=== PATIENT | female | born 1985 | race Caucasian/White ===

== ENCOUNTER 2020-02-01 09:24 | Emergency (ER) | payer OTHER ==
[2020-02-01 09:31] VITALS: RESP 18
[2020-02-01] MEDS ORDERED: SODIUM CHLORIDE 0.9% 1,000 ML IV STA (09:41)
[2020-02-01] MEDS ORDERED: LIDOCAINE VISCOUS 2% 15 ML CUP MUCOUS MEM ONE (09:43)
[2020-02-01] MEDS ORDERED: ONDANSETRON 4 MG/2 ML VIAL IVP STA (09:44)
[2020-02-01] MEDS ORDERED: KETOROLAC 30 MG/ML 1 ML VIAL IVP STA (09:44)
[2020-02-01] MEDS ORDERED: ORPHENADRINE 30 MG/ML 2 ML VIAL IVP STA (09:44)
--- NOTE | 2020-02-01 09:48 | ED ---
General Adult HPI - General Chief complaint: Syncope Stated complaint: Syncope Time Seen by Provider: 02/01/20 09:33 Source: patient, RN notes reviewed, old records reviewed Mode of arrival: ambulatory Limitations: no limitations - History of Present Illness Initial comments: This Patient is a 34-year-old female who presents emergency department today for evaluation after syncopal episode. Patient reports that she's been having 3 weeks of diffuse body pain, complaining of muscle aches hip pain and joint pain. She reports that she's been having some episodes of vomiting as well. She states today she was standing at her. She gets something to drink when she passed out. She reports that she felt to the ground and this hit her upper lip causing a laceration in the inner upper lip. - Related Data Home Medications Medication Instructions Recorded Confirmed ALPRAZolam [Xanax] 0.25 mg PO HS 02/01/20 02/01/20 Ascorbic Acid [Vitamin C] 1,000 mg PO DAILY 02/01/20 02/01/20 Previous Rx's Medication Instructions Recorded Amoxicillin/Potassium Clav 1 tab PO Q12HR 10 Days #5 tab 02/01/20 [Augmentin 875-125 Tablet] Allergies Allergy/AdvReac Type Severity Reaction Status Date / Time No Known Allergies Allergy Verified 02/01/20 11:18 Review of Systems ROS Statement: Those systems with pertinent positive or pertinent negative responses have been documented in the HPI. ROS Other: All systems not noted in ROS Statement are negative. Past Medical History Past Medical History: No Reported History History of Any Multi-Drug Resistant Organisms: None Reported Past Surgical History: Breast Surgery, Section Past Psychological History: No Psychological Hx Reported Smoking Status: Former smoker Past Alcohol Use History: Occasional Past Drug Use History: Marijuana General Exam Limitations: no limitations General appearance: alert, in no apparent distress Head exam: Present: atraumatic, normocephalic, normal inspection Eye exam: Present: normal appearance, PERRL, EOMI. Absent: scleral icterus, conjunctival injection, periorbital swelling ENT exam: Present: normal exam, mucous membranes moist, other (Patient has a laceration of the inner upper lip. No laceration of the vermilion border.) Neck exam: Present: normal inspection. Absent: tenderness, meningismus, lymphadenopathy Respiratory exam: Present: normal lung sounds bilaterally. Absent: respiratory distress, wheezes, rales, rhonchi, stridor Cardiovascular Exam: Present: regular rate, normal rhythm, normal heart sounds. Absent: systolic murmur, diastolic murmur, rubs, gallop, clicks GI/Abdominal exam: Present: soft, normal bowel sounds. Absent: distended, t enderness, guarding, rebound, rigid Back exam: Present: normal inspection Course Vital Signs 02/01/20 02/01/20 09:28 12:38 Temperature 97.8 F 97.9 F Pulse Rate 126 H 101 H Respiratory 18 18 Rate Blood Pressure 136/84 118/80 O2 Sat by Pulse 98 100 Oximetry Procedures - Laceration Laceration #1 Indication: laceration Site: other (swelling) Size (cm): 2 Description: linear Depth: simple, single layer Anesthetic Used: lidocaine 1% Anesthesia Technique: local infiltration Amount (mls): 2 Pre-repair: wound explored Type of Sutures: vicryl Size of Sutures: 5-0 Number of Sutures: 4 Technique: simple, interrupted Patient Tolerated Procedure: well, other Medical Decision Making - Medical Decision Making 34 year old female with CC of syncope with concern for nausea, vomiting, and diarrhea and general fatigue for many weeks. Patient has no fever or complaints of acute pain besides lip laceration. Patient CT brain is negative for acute process. Lip laceration was closed with absorbable suture, and will place on short course of antibiotic for infection prevention. LAbs were reviewed and unremarkable, requests eBV panel for chronic fatigue. PAtient syncope was likely related to dehydration adn vagal episode while standing by the fridge. Di scussed patient needs to follow up with PCP. Return parameters discussed. - Lab Data Result diagrams: 02/01/20 09:50 02/01/20 09:50 Lab Results 02/01/20 02/01/20 02/01/20 Range/Units 09:50 09:50 09:50 WBC 10.7 H (3.8-10.6) k/uL RBC 4.45 (3.80-5.40) m/uL Hgb 14.6 (11.4-16.0) gm/dL Hct 43.8 (34.0-46.0) % MCV 98.3 (80.0-100.0) fL MCH 32.9 (25.0-35.0) pg MCHC 33.4 (31.0-37.0) g/dL RDW 12.5 (11.5-15.5) % Plt Count 337 (150-450) k/uL Neutrophils % 84 % Lymphocytes % 10 % Monocytes % 5 % Eosinophils % 1 % Basophils % 0 % Neutrophils # 9.0 H (1.3-7.7) k/uL Lymphocytes # 1.0 (1.0-4.8) k/uL Monocytes # 0.5 (0-1.0) k/uL Eosinophils # 0.1 (0-0.7) k/uL Basophils # 0.0 (0-0.2) k/uL PT 10.1 (9.0-12.0) sec INR 1.0 (<1.2) APTT 24.4 (22.0-30.0) sec Sodium 142 (137-145) mmol/L Potassium 3.9 (3.5-5.1) mmol/L Chloride 105 (98-107) mmol/L Carbon Dioxide 25 (22-30) mmol/L Anion Gap 12 mmol/L BUN 22 H (7-17) mg/dL Creatinine 0.47 L (0.52-1.04) mg/dL Est GFR (CKD-EPI)AfAm >90 (>60 ml/min/1.73 sqM) Est GFR (CKD-EPI)NonAf >90 (>60 ml/min/1.73 sqM) Glucose 149 H (74-99) mg/dL Lactic Ac Sepsis Rflx Plasma Lactic Acid Asaf (0.7-2.0) mmol/L Calcium 8.9 (8.4-10.2) mg/dL Magnesium 2.0 (1.6-2.3) mg/dL Total Bilirubin 0.2 (0.2-1.3) mg/dL AST 31 (14-36) U/L ALT 27 (4-34) U/L Alkaline Phosphatase 70 (38-126) U/L Troponin I (0.000-0.034) ng/mL Total Protein 7.4 (6.3-8.2) g/dL Albumin 4.3 (3.5-5.0) g/dL HCG, Qual Not Detected Urine Color Urine Appearance (Clear) Urine pH (5.0-8.0) Ur Specific Foreman (1.001-1.035) Urine Protein (Negative) Urine Glucose (UA) (Negative) Urine Ketones (Negative) Urine Blood (Negative) Urine Nitrite (Negative) Urine Bilirubin (Negative) Urine Urobilinogen (<2.0) mg/dL Ur Leukocyte Esterase (Negative) 02/01/20 02/01/20 02/01/20 Range/Units 09:50 09:50 10:24 WBC (3.8-10.6) k/uL RBC (3.80-5.40) m/uL Hgb (11.4-16.0) gm/dL Hct (34.0-46.0) % MCV (80.0-100.0) fL MCH (25.0-35.0) pg MCHC (31.0-37.0) g/dL RDW (11.5-15.5) % Plt Count (150-450) k/uL Neutrophils % % Lymphocytes % % Monocytes % % Eosinophils % % Basophils % % Neutrophils # (1.3-7.7) k/uL Lymphocytes # (1.0-4.8) k/uL Monocytes # (0-1.0) k/uL Eosinophils # (0-0.7) k/uL Basophils # (0-0.2) k/uL PT (9.0-12.0) sec INR (<1.2) APTT (22.0-30.0) sec Sodium (137-145) mmol/L Potassium (3.5-5.1) mmol/L Chloride (98-107) mmol/L Carbon Dioxide (22-30) mmol/L Anion Gap mmol/L BUN (7-17) mg/dL Creatinine (0.52-1.04) mg/dL Est GFR (CKD-EPI)AfAm (>60 ml/min/1.73 sqM) Est GFR (CKD-EPI)NonAf (>60 ml/min/1.73 sqM) Glucose (74-99) mg/dL Lactic Ac Sepsis Rflx Y Plasma Lactic Acid Asaf 2.2 H* (0.7-2.0) mmol/L Calcium (8.4-10.2) mg/dL Magnesium (1.6-2.3) mg/dL Total Bilirubin (0.2-1.3) mg/dL AST (14-36) U/L ALT (4-34) U/L Alkaline Phosphatase (38-126) U/L Troponin I <0.012 (0.000-0.034) ng/mL Total Protein (6.3-8.2) g/dL Albumin (3.5-5.0) g/dL HCG, Qual Urine Color Urine Appearance (Clear) Urine pH (5.0-8.0) Ur Specific Foreman (1.001-1.035) Urine Protein (Negative) Urine Glucose (UA) (Negative) Urine Ketones (Negative) Urine Blood (Negative) Urine Nitrite (Negative) Urine Bilirubin (Negative) Urine Urobilinogen (<2.0) mg/dL Ur Leukocyte Esterase (Negative) 02/01/20 Range/Units 10:50 WBC (3.8-10.6) k/uL RBC (3.80-5.40) m/uL Hgb (11.4-16.0) gm/dL Hct (34.0-46.0) % MCV (80.0-100.0) fL MCH (25.0-35.0) pg MCHC (31.0-37.0) g/dL RDW (11.5-15.5) % Plt Count (150-450) k/uL Neutrophils % % Lymphocytes % % Monocytes % % Eosinophils % % Basophils % % Neutrophils # (1.3-7.7) k/uL Lymphocytes # (1.0-4.8) k/uL Monocytes # (0-1.0) k/uL Eosinophils # (0-0.7) k/uL Basophils # (0-0.2) k/uL PT (9.0-12.0) sec INR (<1.2) APTT (22.0-30.0) sec Sodium (137-145) mmol/L Potassium (3.5-5.1) mmol/L Chloride (98-107) mmol/L Carbon Dioxide (22-30) mmol/L Anion Gap mmol/L BUN (7-17) mg/dL Creatinine (0.52-1.04) mg/dL Est GFR (CKD-EPI)AfAm (>60 ml/min/1.73 sqM) Est GFR (CKD-EPI)NonAf (>60 ml/min/1.73 sqM) Glucose (74-99) mg/dL Lactic Ac Sepsis Rflx Plasma Lactic Acid Asaf (0.7-2.0) mmol/L Calcium (8.4-10.2) mg/dL Magnesium (1.6-2.3) mg/dL Total Bilirubin (0.2-1.3) mg/dL AST (14-36) U/L ALT (4-34) U/L Alkaline Phosphatase (38-126) U/L Troponin I (0.000-0.034) ng/mL Total Protein (6.3-8.2) g/dL Albumin (3.5-5.0) g/dL HCG, Qual Urine Color Light Yellow Urine Appearance Clear (Clear) Urine pH 6.5 (5.0-8.0) Ur Specific Foreman 1.016 (1.001-1.035) Urine Protein Negative (Negative) Urine Glucose (UA) 3+ H (Negative) Urine Ketones 2+ H (Negative) Urine Blood Negative (Negative) Urine Nitrite Negative (Negative) Urine Bilirubin Negative (Negative) Urine Urobilinogen <2.0 (<2.0) mg/dL Ur Leukocyte Esterase Negative (Negative) 02/01/20 09:49 EKG shows normal sinus rhythm rate atrial enlargement. Borderline EKG. Ventricular rate of 99 bpm. Intervals 132 ms. QRS duration is 80 ms. QT QTc is 368/472 ms. - Radiology Data Radiology results: report reviewed CXR is negative or acute process. CT brain and cspine shows no acute intracranial abnormality. Disposition Clinical Impression: Syncope, Glucose found in urine on examination, Dehydration, Lip laceration Disposition: HOME SELF-CARE Condition: Good Instructions (If sedation given, give patient instructions): Laceration (ED), Syncope (ED) Additional Instructions: Take antibiotic as prescribed. 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 The lip sutures will follow-up on her own. Patient should use salt water or Listerine rinses to help minimize infection risk. Return to the ED if any alarming signs or symptoms occur. Prescriptions: Amoxicillin/Potassium Clav [Augmentin 875-125 Tablet] 1 tab PO Q12HR 10 Days #5 tab Is patient prescribed a controlled substance at d/c from ED?: No Referrals: Janette Garcia MD [Primary Care Provider] - 1-2 days Aura Clay MD [STAFF PHYSICIAN] - 1-2 days Time of Disposition: 12:26
[2020-02-01 09:59] LABS: Basophils % (A) 0 %; Eosinophils # (A) 0.1 k/uL (0-0.7); Eosinophils % (A) 1 %; HCT 43.8 % (34.0-46.0); HGB 14.6 gm/dL (11.4-16.0); Lymphocytes % (A) 10 %; MCH 32.9 pg (25.0-35.0); MCHC 33.4 g/dL (31.0-37.0); MCV 98.3 fL (80.0-100.0); Mean Platelet Volume 7.7; Monocytes # (A) 0.5 k/uL (0-1.0); Monocytes % (A) 5 %; Neutrophils % (A) 84 %; Platelet Count 337 k/uL (150-450); RBC 4.45 m/uL (3.80-5.40); RDW 12.5 % (11.5-15.5); WBC 10.7 k/uL (3.8-10.6)
[2020-02-01 10:09] LABS: ALT 27 U/L (4-34); AST 31 U/L (14-36); African American GFR (CKD) >90 (>60 ml/min/1.73 sqM); Albumin 4.3 g/dL (3.5-5.0); Alkaline Phosphatase 70 U/L (38-126); Anion Gap 12 mmol/L; Blood Urea Nitrogen 22 mg/dL (7-17); Calcium 8.9 mg/dL (8.4-10.2); Carbon Dioxide 25 mmol/L (22-30); Chloride 105 mmol/L (98-107); Glucose 149 mg/dL (74-99); Non-African American GFR(CKD) >90 (>60 ml/min/1.73 sqM); Partial Thromboplastin Time 24.4 sec (22.0-30.0); Potassium 3.9 mmol/L (3.5-5.1); Prothrombin Time 10.1 sec (9.0-12.0); Sodium 142 mmol/L (137-145); Total Bilirubin 0.2 mg/dL (0.2-1.3); Total Protein 7.4 g/dL (6.3-8.2)
[2020-02-01 10:10] LABS: HCG,Qualitative Serum Not Detected
--- NOTE | 2020-02-01 10:47 | CT ---
EXAMINATION TYPE: CT brain cspine wo con DATE OF EXAM: 02/01/2020 COMPARISON: NONE HISTORY: Syncope CT DLP: 1152.9 mGycm Automated exposure control for dose reduction was used. TECHNIQUE: CT scan of the head and cervical spine are performed without contrast. FINDINGS: BRAIN: Central structures are midline. There is no evidence of hydrocephalus. No acute focal lesion, mass effect or midline shift is seen. I do not see evidence of intracranial blood. There is mucoperiosteal thickening involving the posterior ethmoid air cells bilaterally. There is al so some mucoperiosteal thickening involving the medial aspect of the right maxillary sinus. The remai tio paranasal sinuses and mastoids are clear. The bony calvarium is intact. IMPRESSION: 1. NO ACUTE INTRACRANIAL ABNORMALITY. 2. SINUS MUCOSAL DISEASE. CERVICAL SPINE: Visualized portions of the lungs are clear. Prevertebral soft tissues are normal. Vertebral body height and alignment are maintained. Atlantoaxial relationships are normal. There is n o significant degenerative change. No fractures are seen. IMPRESSION: NORMAL CT SCAN OF THE CERVICAL SPINE.
--- NOTE | 2020-02-01 10:48 | XR ---
EXAMINATION TYPE: XR chest 2V DATE OF EXAM: 02/01/2020 HISTORY: syncope. REFERENCE: NONE. FINDINGS: The lungs are clear. Pleural space are clear. Heart size upper limits of normal. IMPRESSION: NO ACUTE INTRATHORACIC ABNORMALITY.
[2020-02-01 11:22] LABS: Appearance,Urine Clear (Clear); Bilirubin,Urine Negative (Negative); Blood,Urine Negative (Negative); Color,Urine Light Yellow; Glucose,Urine (UA) 3+ (Negative); Leukocyte Esterase,Urine Negative (Negative); Nitrite,Urine Negative (Negative); PH, Urine 6.5 (5.0-8.0); Protein,Urine Negative (Negative); Specific Gravity,Urine 1.016 (1.001-1.035); Urobilinogen,Urine <2.0 mg/dL (<2.0)
[2020-02-01 11:55] LABS: Ketones,Urine 2+ (Negative)
[2020-02-01 12:38] VITALS: BP 118/80; PULSE 101; TEMP 97.9
[2020-02-03 13:34] LABS: EBV-EA (IgG) <0.2 AI; EBV-EBNA(IgG) >8.0 AI; EBV-VCA (IgG) >8.0 AI; EBV-VCA (IgM) <0.2 AI
== END 2020-02-01 12:38 | disposition home or self-care (01) ==
LOC: EC 09:24
DX: S01.511A Laceration without foreign body of lip, initial encounter (principal); R55 Syncope and collapse; R81 Glycosuria; E86.0 Dehydration; Z79.899 Other long term (current) drug therapy; Z87.891 Personal history of nicotine dependence; W18.09XA Striking against other object with subsequent fall, initial encounter
CPT/HCPCS: 36415; 93005; 86665 ×2; 80053; 86663; 83605; 83735; 84484; 85025; 85610; 85730; 81003; 84703; 86664; 71046; 72125; 70450; 99285; 12011; 96374; 96375 ×2; 96361; J2360; J2405; J1885

== ENCOUNTER → 2020-05-07 | Outpatient (CLI) | payer OTHER ==
[2020-05-07 19:38] LABS: Anti-DNA, DS unit <1.0 IU/mL; Anti-Smith Ab Interp NEGATIVE (NEGATIVE); Centromere Antibody <0.2 AI; Centromere Antibody Interp NEGATIVE (NEGATIVE); Cyclic Citrull Pep IgG Unit 0.8 U/mL; Cyclic Citrullinated Pep IgG NEGATIVE (NEGATIVE); DNA Double-Stranded NEGATIVE (NEGATIVE); JO-1 IgG Antibody <0.2 AI; Scleroderma SC-70 Ab <0.2 AI
[2020-05-08 12:47] LABS: Histone Antibody 1.7 UNITS (<1.0)
== END | disposition home or self-care (01) ==
LOC: LABWHC1 12:03
PROVIDERS: ATTEND Nurse Practitioner Family
DX: M25.50 Pain in unspecified joint (principal)
CPT/HCPCS: 36415; 83516; 86038; 86200; 86225; 86235

== ENCOUNTER → 2020-06-19 | Outpatient (CLI) | payer OTHER ==
[2020-06-20 02:20] LABS: Hemoglobin A1C 5.4 % (4.0-6.0)
== END | disposition home or self-care (01) ==
LOC: LABWHC1 14:54
PROVIDERS: ATTEND Nurse Practitioner Family
DX: F41.9 Anxiety disorder, unspecified (principal); R53.83 Other fatigue; R68.89 Other general symptoms and signs; R63.4 Abnormal weight loss
CPT/HCPCS: 36415; 82533; 83036; 84439; 84443; 84481

== ENCOUNTER 2020-07-16 02:47 | Emergency (ER) | payer OTHER ==
[2020-07-16 02:54] VITALS: BP 117/82; PULSE 89; RESP 18; TEMP 98.1
--- NOTE | 2020-07-16 03:00 | ED ---
Allergic Reaction HPI - General Chief complaint: Allergic Reaction Stated complaint: Hives Time Seen by Provider: 07/16/20 02:59 Source: patient, RN notes reviewed, old records reviewed Mode of arrival: ambulatory Limitations: no limitations - History of Present Illness Initial Comments: Is a 34-year-old female DF presented with ALLERGIC reaction today. Unknown cause. Hives diffuse all over body. Other complaints no fevers no new drugs. No other known exposures. Nursing travel history sick contacts. No significant pain. Patient is just having multiple areas of itching and hives MD Complaint: allergic reaction, hives (Diffuse) -: hour(s) Exposure: unknown Symptoms: rash, itching Severity: moderate Treatment Prior to Arrival: benadryl Previous Allergy History: none - Related Data Home Medications Medication Instructions Recorded Confirmed ALPRAZolam [Xanax] 0.25 mg PO HS 02/01/20 02/01/20 Ascorbic Acid [Vitamin C] 1,000 mg PO DAILY 02/01/20 02/01/20 Previous Rx's Medication Instructions Recorded Amoxicillin/Potassium Clav 1 tab PO Q12HR 10 Days #5 tab 02/01/20 [Augmentin 875-125 Tablet] Allergies Allergy/AdvReac Type Severity Reaction Status Date / Time No Known Allergies Allergy Verified 07/16/20 02:54 Review of Systems ROS Statement: Those systems with pertinent positive or pertinent negative responses have been documented in the HPI. ROS Other: All systems not noted in ROS Statement are negative. Past Medical History Past Medical History: No Reported History, Thyroid Disorder History of Any Multi-Drug Resistant Organisms: None Reported Past Surgical History: Breast Surgery, Section Past Psychological History: No Psychological Hx Reported Smoking Status: Never smoker Past Alcohol Use History: Occasional Past Drug Use History: Marijuana General Exam - General Exam Comments Initial Comments: Diffuse pruritic, raised hive rash, erythematous blanchable Limitations: no limitations General appearance: alert, in no apparent distress Head exam: Present: atraumatic, normocephalic, normal inspection Eye exam: Present: normal appearance, PERRL, EOMI. Absent: scleral icterus, conjunctival injection, periorbital swelling ENT exam: Present: normal exam, mucous membranes moist Neck exam: Present: normal inspection. Absent: tenderness, meningismus, lymphadenopathy Respiratory exam: Present: normal lung sounds bilaterally. Absent: respiratory distress, wheezes, rales, rhonchi, stridor Cardiovascular Exam: Present: regular rate, normal rhythm, normal heart sounds. Absent: systolic murmur, diastolic murmur, rubs, gallop, clicks GI/Abdominal exam: Present: soft, normal bowel sounds. Absent: distended, tenderness, guarding, rebound, rigid Extremities exam: Present: normal inspection, full ROM, normal capillary refill. Absent: tenderness, pedal edema, joint swelling, calf tenderness Back exam: Present: normal inspection Neurological exam: Present: alert, oriented X3, CN II-XII intact Psychiatric exam: Present: normal affect, normal mood Skin exam: Present: warm, dry, intact, normal color. Absent: rash Course Vital Signs 07/16/20 02:51 Temperature 98.1 F Pulse Rate 89 Respiratory 18 Rate Blood Pressure 117/82 O2 Sat by Pulse 100 Oximetry - Reevaluation(s) Reevaluation #1: 07/16/20 03:38 Medical records reviewed Reevaluation #2: 07/16/20 03:38 Symptoms are significantly improved Medical Decision Making - Medical Decision Making 34 female DF for ALLERGIC reaction and hives. Patient can be discharged home on antihistamine Disposition Clinical Impression: Allergic reaction Disposition: HOME SELF-CARE Condition: Good Instructions (If sedation given, give patient instructions): Urticaria (ED) Is patient prescribed a controlled substance at d/c from ED?: No Referrals: Janette Garcia MD [Primary Care Provider] - 1-2 days
[2020-07-16] MEDS ORDERED: DEXAMETHASONE SOD PHOSPHATE 10 MG/ML 1 ML VIAL IV STA (03:07)
[2020-07-16] MEDS ORDERED: SODIUM CHLORIDE 0.9% 1,000 ML IV STA (03:07)
[2020-07-16] MEDS ORDERED: FAMOTIDINE 20 MG/2 ML VIAL IV STA (03:07)
[2020-07-16] MEDS ORDERED: TRIAMCINOLONE 0.1% CREAM 80 GM TUBE TOPICAL ONE (03:15)
[2020-07-16] MEDS ORDERED: hydrOXYzine HCL 25 MG TAB PO ONE (03:15)
== END 2020-07-16 03:56 | disposition home or self-care (01) ==
LOC: EC 02:47
DX: L50.0 Allergic urticaria (principal); Z79.899 Other long term (current) drug therapy
CPT/HCPCS: 99283; 96374; 96375; 96361; J1100

== ENCOUNTER → 2020-09-30 | Outpatient (CLI) | payer OTHER ==
[2020-10-01 04:18] LABS: T4, Free (Free Thyroxine) 0.6 ng/dL (0.80-1.80)
== END | disposition home or self-care (01) ==
LOC: LABWHC1 13:26
PROVIDERS: ATTEND Internal Medicine Endocrinology, Diabetes & Metabolism
DX: E05.90 Thyrotoxicosis, unspecified without thyrotoxic crisis or storm (principal)
CPT/HCPCS: 36415; 84439; 84443; 84481

== ENCOUNTER → 2020-10-26 | Outpatient (CLI) | payer OTHER ==
[2020-10-26 21:46] LABS: Total Protein,CSF 56 mg/dL (12-60)
[2020-10-26 21:47] LABS: Appearance,CSF Clear; CSF Tube Number 4; Nucleated Cells, CSF 0 u/L (0-5); Red Blood Cell,CSF 1 u/L (0-10)
== END | disposition home or self-care (01) ==
LOC: LABWHC1 09:27
PROVIDERS: ATTEND Nurse Practitioner Family
DX: G35 Multiple sclerosis (principal)
CPT/HCPCS: 36415; 82040; 82042; 82784; 83873; 83916; 84157; 87801; 89050

== ENCOUNTER → 2020-11-13 | Outpatient (CLI) | payer OTHER ==
[2020-11-13 22:16] LABS: T4, Free (Free Thyroxine) 1.2 ng/dL (0.80-1.80)
[2020-11-14 00:55] LABS: Hemoglobin A1C 4.8 % (4.0-6.0)
== END | disposition home or self-care (01) ==
LOC: LABWHC1 11:37
PROVIDERS: ATTEND Internal Medicine Endocrinology, Diabetes & Metabolism
DX: E06.3 Autoimmune thyroiditis (principal); E05.00 Thyrotoxicosis with diffuse goiter without thyrotoxic crisis or storm; Z86.32 Personal history of gestational diabetes
CPT/HCPCS: 36415; 83036; 84439; 84443; 84481

== ENCOUNTER → 2020-12-15 | Outpatient (CLI) | payer OTHER ==
[2020-12-16 04:26] LABS: Hemoglobin A1C 5.1 % (4.0-6.0)
[2020-12-16 06:51] LABS: T4, Free (Free Thyroxine) 0.8 ng/dL (0.80-1.80)
[2020-12-16 13:00] LABS: Alt. alternata IgE Class CLASS 0; Alternaria alternata IgE <0.10 kU/L (<0.10); Asperg. fumagatus IgE <0.10 kU/L (<0.10); Asperg. fumagatus IgE Class CLASS 0; Candida albicans IgE Class CLASS 0; Clad herbarum IgE <0.10 kU/L (<0.10); Clad herbarum IgE Class CLASS 0; Mucor racemosus IgE <0.10 kU/L (<0.10); Mucor racemosus IgE Class CLASS 0; Penicillium chrysogenum IgE <0.10 kU/L (<0.10); Penicillium chrysogenum IgE Cl CLASS 0
== END | disposition home or self-care (01) ==
LOC: LABWHC1 14:08
PROVIDERS: ATTEND Internal Medicine Endocrinology, Diabetes & Metabolism
DX: E05.00 Thyrotoxicosis with diffuse goiter without thyrotoxic crisis or storm (principal); E06.3 Autoimmune thyroiditis; G90.09 Other idiopathic peripheral autonomic neuropathy; R53.1 Weakness
CPT/HCPCS: 36415; 81291; 82390; 82525; 83036; 84439; 84443; 84481; 86003

== ENCOUNTER → 2021-01-21 | Outpatient (CLI) | payer OTHER ==
[2021-01-21 23:28] LABS: C-Peptide 1.36 ng/mL (0.81-3.85)
== END | disposition home or self-care (01) ==
LOC: LABWHC1 14:40
PROVIDERS: ATTEND Internal Medicine Endocrinology, Diabetes & Metabolism
DX: E05.00 Thyrotoxicosis with diffuse goiter without thyrotoxic crisis or storm (principal); E16.2 Hypoglycemia, unspecified; G62.9 Polyneuropathy, unspecified; R53.1 Weakness
CPT/HCPCS: 36415; 82010; 82533; 82947; 83525; 84439; 84443; 84481; 84681; 86337; 86340

== ENCOUNTER → 2021-02-16 | Outpatient (CLI) | payer OTHER ==
[2021-02-16 21:04] LABS: T4, Free (Free Thyroxine) 1.5 ng/dL (0.80-1.80)
== END | disposition home or self-care (01) ==
LOC: LABWHC1 14:08
PROVIDERS: ATTEND Internal Medicine Endocrinology, Diabetes & Metabolism
DX: E05.00 Thyrotoxicosis with diffuse goiter without thyrotoxic crisis or storm (principal); G62.9 Polyneuropathy, unspecified; R53.1 Weakness
CPT/HCPCS: 36415; 83090; 84439; 84443; 84481

== ENCOUNTER → 2021-09-13 | Outpatient (CLI) | payer OTHER ==
--- NOTE | 2021-09-13 11:34 | US ---
EXAMINATION TYPE: US abdomen complete DATE OF EXAM: 09/13/2021 COMPARISON: NONE CLINICAL HISTORY: R10.84 Generalized abdominal pain. EXAM MEASUREMENTS: Liver Length: 15.2 cm Gallbladder Wall: 0.2 cm CBD: 0.2 cm Spleen: 8.2 cm Right Kidney: 11.7x4.5x3.0 cm Left Kidney: 12.2x4.4x5.2 cm Pancreas: wnl Liver: wnl Gallbladder: wnl Evidence for sonographic Sy's sign: No CBD: wnl Spleen: wnl Right Kidney: wnl Left Kidney: wnl Upper IVC: wnl Abd Aorta: wnl IMPRESSION: 1. No acute ultrasound abdomen abnormality is evident.
== END | disposition home or self-care (01) ==
LOC: RADUSWWP 10:03
PROVIDERS: ATTEND Family Medicine
DX: R10.84 Generalized abdominal pain (principal)
CPT/HCPCS: 76700

== ENCOUNTER 2022-03-13 14:19 | Emergency (ER) | payer OTHER ==
[2022-03-13 14:23] VITALS: RESP 16; TEMP 97.8
[2022-03-13] MEDS ORDERED: SODIUM CHLORIDE 0.9% 1,000 ML IV STA (14:42)
[2022-03-13] MEDS ORDERED: ONDANSETRON 4 MG/2 ML VIAL IVP STA (14:43)
[2022-03-13] MEDS ORDERED: FAMOTIDINE 20 MG/2 ML VIAL IV STA (14:43)
[2022-03-13] MEDS ORDERED: diphenhydrAMINE 50 MG/ML 1 ML VIAL IVP STA (14:43)
[2022-03-13] MEDS ORDERED: KETOROLAC 15 MG/ML 1 ML VIAL IVP STA (14:43)
[2022-03-13 14:59] LABS: Basophils # (A) 0.1 k/uL (0-0.2); Basophils % (A) 1 %; Eosinophils # (A) 0.1 k/uL (0-0.7); Eosinophils % (A) 2 %; HCT 42.7 % (34.0-46.0); HGB 14.3 gm/dL (11.4-16.0); Lymphocytes # (A) 1.4 k/uL (1.0-4.8); Lymphocytes % (A) 18 %; MCH 35.4 pg (25.0-35.0); MCHC 33.6 g/dL (31.0-37.0); MCV 105.4 fL (80.0-100.0); Macrocytosis Moderate; Mean Platelet Volume 7.7; Monocytes # (A) 0.5 k/uL (0-1.0); Monocytes % (A) 7 %; Neutrophils # (A) 5.4 k/uL (1.3-7.7); Neutrophils % (A) 70 %; Platelet Count 340 k/uL (150-450); RBC 4.05 m/uL (3.80-5.40); RDW 13.5 % (11.5-15.5); WBC 7.7 k/uL (3.8-10.6)
[2022-03-13 15:09] LABS: ALT 17 U/L (4-34); AST 39 U/L (14-36); African American GFR (CKD) >90 (>60 ml/min/1.73 sqM); Albumin 4.9 g/dL (3.5-5.0); Alkaline Phosphatase 67 U/L (38-126); Amylase 67 U/L (30-110); Anion Gap 8 mmol/L; Blood Urea Nitrogen 9 mg/dL (7-17); Calcium 8.9 mg/dL (8.4-10.2); Carbon Dioxide 25 mmol/L (22-30); Chloride 104 mmol/L (98-107); Glucose 93 mg/dL (74-99); Lipase 104 U/L (23-300); Non-African American GFR(CKD) >90 (>60 ml/min/1.73 sqM); Sodium 137 mmol/L (137-145); Total Bilirubin 0.9 mg/dL (0.2-1.3); Total Protein 8.4 g/dL (6.3-8.2)
[2022-03-13 15:11] LABS: Potassium 4.4 mmol/L (3.5-5.1)
--- NOTE | 2022-03-13 15:35 | ED ---
General Adult HPI - General Chief complaint: Chest Pain Stated complaint: SOB/Chest pain Time Seen by Provider: 03/13/22 14:40 Source: patient, RN notes reviewed, old records reviewed Mode of arrival: wheelchair Limitations: no limitations - History of Present Illness Initial comments: Patient is a 36-year-old female with past medical history remarkable for Steven's thyroiditis and hyperthyroidism presents emergency Department with chronic symptoms. She states she has been experiencing for multiple months to years intermittent chest pressure, shortness of breath, as well as lightheadedness. Patient has been having some mild worsening nausea as well as. At time of nonbilious, emesis. Patient is also currently on her menstrual period, and endorses chronic heavy entities. Denies being . Has no other acute point at this time. His mild epigastric tenderness to palpation. Denies any fevers per denies any palpitations. His no other acute complaints at this time. States typically she receives IV fluids and feels improved. She presents for evaluation at this time. - Related Data Home Medications Medication Instructions Recorded Confirmed ALPRAZolam [Xanax] 0.25 mg PO HS 02/01/20 11/11/21 methIMAzole [Tapazole] 10 mg PO DAILY 03/25/21 11/11/21 Ascorbic Acid [Vitamin C] 1,000 mg PO DAILY 11/11/21 11/11/21 Cholecalciferol [Vitamin D3 (125 125 mcg PO DAILY 11/11/21 11/11/21 Mcg = 5000 Iu)] Previous Rx's Medication Instructions Recorded Metoclopramide HCl [Reglan] 5 mg PO BID PRN 5 Days #10 tablet 03/13/22 Allergies Allergy/AdvReac Type Severity Reaction Status Date / Time silicone Allergy blisters, Verified 03/13/22 14:21 multiple symptoms Review of Systems ROS Statement: Those systems with pertinent positive or pertinent negative responses have been documented in the HPI. Review of Systems: CONST: Denies fever EYES: Denies blurry vision ENT: Denies nasal congestion C/V: Endorses chronic chest pressure RESP: Endorses intermittent shortness of breath GI: Endorses epigastric abdominal discomfort : Denies dysuria SKIN: Denies rash. MSK: Denies joint pain. NEURO: Denies headache ROS Other: All systems not noted in ROS Statement are negative. Past Medical History Past Medical History: Thyroid Disorder Additional Past Medical History / Comment(s): Graves disease, hashimotos; occ rapid HR/palpitations. c/o wgt loss, abd pain, bloating, diarrhea. c/o joint pain, stiffness. Poss megaloblastic anemia. History of Any Multi-Drug Resistant Organisms: None Reported Past Surgical History: Breast Surgery, Section Additional Past Surgical History / Comment(s): C-S x3. Breast implants x2, then removed last silicone implants. Past Anesthesia/Blood Transfusion Reactions: Motion Sickness, Postoperative Nausea & Vomiting (PONV) Past Psychological History: Anxiety, Depression Smoking Status: Never smoker Past Alcohol Use History: Occasional Past Drug Use History: None Reported - Past Family History Mother Family Medical History: No Reported History General Exam - General Exam Comments Initial Comments: General: Appears in no acute distress. Afebrile. HEAD: Normal with no signs of head trauma. EYES: PERRLA, EOMI, conjunctiva normal, no discharge. No exophthalmos. ENT: Hearing grossly intact, normal oropharynx. RESPIRATORY: Clear breath sounds bilaterally. No wheezes, rales, or rhonchi. C/V: Regular rate and rhythm. S1 and S2 auscultated, no edema, peripheral pulses 2+ and intact throughout. No tachycardia. ABD: Abdomen soft, nondistended. Mild tightness to palpation in the epigastric region. No rebound tenderness. No peritoneal signs. No guarding. EXT: Normal range of motion, no obvious deformity SKIN: No rashes or lesions observed on exposed skin. NEURO: Alert and oriented 4. Limitations: no limitations Course Vital Signs 03/13/22 03/13/22 14:21 16:20 Temperature 97.8 F Pulse Rate 92 85 Respiratory 16 16 Rate Blood Pressure 132/89 117/81 O2 Sat by Pulse 100 100 Oximetry Medical Decision Making - Medical Decision Making Based on the patient's presentation and physical exam, I do believe she is like ly experiencing her chronic symptoms but cannot rule out acute cause at this time. Therefore we'll obtain cardio pulmonary labs at this time as well as basic abdominal labs. She'll be symptomatically treated with this time as well. I did offer her Covid and flu swabs which she declines. We'll obtain EKG and chest x-ray as well. She will receive IV fluids as well as GI cocktail and Toradol. Patient was in agreement this plan.I have no concern for thyroid storm at this time as she is afebrile, with normal sinus rhythm. Recent labs drawn within the last few months during which she was having the symptoms which showed normal thyroid function. She can follow up outpatient for further monitoring.. EKG shows no signs of acute ischemia. Normal sinus rhythm. Chest x-ray shows no acute cardiopulmonary process. Laboratory studies are remarkable for a d-dimer within normal limits per troponin is negative. Remainder the labs are unremarkable except for 2+ ketones in the urine. There is blood in the urine, however this is likely secondary to her being on her menstrual cycle at this time. Patient is not . Remainder the labs are unremarkable. On reevaluation, patient is feeling improved. Is tolerating oral intake. Vital signs are within normal limits. I discussed results laboratory studies and imaging with her. She expressed understanding. She would like to go home. I believe this is reasonable at this time. I recommended close follow up with her physician. I will provide the patient with a prescription for Reglan. I instructed the patient to follow up with their PCP in the next 3 days. I explained that the patient should return to the emergency department if they experience any worsening symptoms. Strict return precautions were discussed with the patient. The patient expressed understanding of these instructions. I answered all q uestions that the patient had. The patient was discharged home in good condition with their prescriptions and follow up information. - Lab Data Result diagrams: 03/13/22 14:56 03/13/22 14:56 Lab Results 03/13/22 03/13/22 03/13/22 Range/Units 14:56 14:56 14:56 WBC 7.7 (3.8-10.6) k/uL RBC 4.05 (3.80-5.40) m/uL Hgb 14.3 (11.4-16.0) gm/dL Hct 42.7 (34.0-46.0) % MCV 105.4 H (80.0-100.0) fL MCH 35.4 H (25.0-35.0) pg MCHC 33.6 (31.0-37.0) g/dL RDW 13.5 (11.5-15.5) % Plt Count 340 (150-450) k/uL MPV 7.7 Neutrophils % 70 % Lymphocytes % 18 % Monocytes % 7 % Eosinophils % 2 % Basophils % 1 % Neutrophils # 5.4 (1.3-7.7) k/uL Lymphocytes # 1.4 (1.0-4.8) k/uL Monocytes # 0.5 (0-1.0) k/uL Eosinophils # 0.1 (0-0.7) k/uL Basophils # 0.1 (0-0.2) k/uL Macrocytosis Moderate PT 11.0 (9.0-12.0) sec INR 1.0 (<1.2) APTT 29.0 (22.0-30.0) sec D-Dimer 0.20 (<0.60) mg/L FEU Sodium 137 (137-145) mmol/L Potassium 4.4 (3.5-5.1) mmol/L Chloride 104 (98-107) mmol/L Carbon Dioxide 25 (22-30) mmol/L Anion Gap 8 mmol/L BUN 9 (7-17) mg/dL Creatinine 0.64 (0.52-1.04) mg/dL Est GFR (CKD-EPI)AfAm >90 (>60 ml/min/1.73 sqM) Est GFR (CKD-EPI)NonAf >90 (>60 ml/min/1.73 sqM) Glucose 93 (74-99) mg/dL Calcium 8.9 (8.4-10.2) mg/dL Magnesium 2.0 (1.6-2.3) mg/dL Total Bilirubin 0.9 (0.2-1.3) mg/dL AST 39 H (14-36) U/L ALT 17 (4-34) U/L Alkaline Phosphatase 67 (38-126) U/L Troponin I (0.000-0.034) ng/mL Total Protein 8.4 H (6.3-8.2) g/dL Albumin 4.9 (3.5-5.0) g/dL Amylase 67 (30-110) U/L Lipase 104 (23-300) U/L Urine Color Urine Appearance (Clear) Urine pH (5.0-8.0) Ur Specific [place] (1.001-1.035) Urine Protein (Negative) Urine Glucose (UA) (Negative) Urine Ketones (Negative) Urine Blood (Negative) Urine Nitrite (Negative) Urine Bilirubin (Negative) Urine Urobilinogen (<2.0) mg/dL Ur Leukocyte Esterase (Negative) Urine RBC (0-5) /hpf Urine WBC (0-5) /hpf Ur Squamous Epith Cells (0-4) /hpf Urine Bacteria (None) /hpf Urine Mucus (None) /hpf Urine HCG, Qual (Not Detectd) 03/13/22 03/13/22 03/13/22 Range/Units 14:56 15:00 15:00 WBC (3.8-10.6) k/uL RBC (3.80-5.40) m/uL Hgb (11.4-16.0) gm/dL Hct (34.0-46.0) % MCV (80.0-100.0) fL MCH (25.0-35.0) pg MCHC (31.0-37.0) g/dL RDW (11.5-15.5) % Plt Count (150-450) k/uL MPV Neutrophils % % Lymphocytes % % Monocytes % % Eosinophils % % Basophils % % Neutrophils # (1.3-7.7) k/uL Lymphocytes # (1.0-4.8) k/uL Monocytes # (0-1.0) k/uL Eosinophils # (0-0.7) k/uL Basophils # (0-0.2) k/uL Macrocytosis PT (9.0-12.0) sec INR (<1.2) APTT (22.0-30.0) sec D-Dimer (<0.60) mg/L FEU Sodium (137-145) mmol/L Potassium (3.5-5.1) mmol/L Chloride (98-107) mmol/L Carbon Dioxide (22-30) mmol/L Anion Gap mmol/L BUN (7-17) mg/dL Creatinine (0.52-1.04) mg/dL Est GFR (CKD-EPI)AfAm (>60 ml/min/1.73 sqM) Est GFR (CKD-EPI)NonAf (>60 ml/min/1.73 sqM) Glucose (74-99) mg/dL Calcium (8.4-10.2) mg/dL Magnesium (1.6-2.3) mg/dL Total Bilirubin (0.2-1.3) mg/dL AST (14-36) U/L ALT (4-34) U/L Alkaline Phosphatase (38-126) U/L Troponin I <0.012 (0.000-0.034) ng/mL Total Protein (6.3-8.2) g/dL Albumin (3.5-5.0) g/dL Amylase (30-110) U/L Lipase (23-300) U/L Urine Color Colorless Urine Appearance Clear (Clear) Urine pH 7.0 (5.0-8.0) Ur Specific [place] 1.004 (1.001-1.035) Urine Protein Negative (Negative) Urine Glucose (UA) Negative (Negative) Urine Ketones 2+ H (Negative) Urine Blood Large H (Negative) Urine Nitrite Negative (Negative) Urine Bilirubin Negative (Negative) Urine Urobilinogen <2.0 (<2.0) mg/dL Ur Leukocyte Esterase Negative (Negative) Urine RBC 4 (0-5) /hpf Urine WBC 4 (0-5) /hpf Ur Squamous Epith Cells 1 (0-4) /hpf Urine Bacteria Rare H (None) /hpf Urine Mucus Rare H (None) /hpf Urine HCG, Qual Not Detected (Not Detectd) - EKG Data -: EKG Interpreted by Me EKG Comments: 12-lead Electrocardiogram Interpretation Note EKG was reviewed and interpreted by myself. 12-lead ECG performed at 1428 is interpreted by me as revealing normal sinus rhythm at a rate of 76 beats per minute. [place] is normal. [place] intervals 136 ms, QRS duration is 100 ms, QTc is 420 ms.. There were no ST or T wave abnormalities to suggest myocardial ischemia or injury. R wave progression across the precordium was delayed. By my interpretation this EKG is non-diagnostic for acute ischemia. Disposition Clinical Impression: Nausea, Atypical chest pain Disposition: HOME SELF-CARE Condition: Good Instructions (If sedation given, give patient instructions): Chest Pain (ED), Acute Nausea and Vomiting (ED) Prescriptions: Metoclopramide HCl [Reglan] 5 mg PO BID PRN 5 Days #10 tablet PRN Reason: Nausea Is patient prescribed a controlled substance at d/c from ED?: No Referrals: Hayley Neri MD [Primary Care Provider] - 1-2 days Time of Disposition: 16:30
[2022-03-13 15:46] LABS: Bacteria,Urine Rare /hpf; Mucus,Urine Rare /hpf; RBC,Urine 4 /hpf (0-5); Squamous Epithelial Cell,Urine 1 /hpf (0-4); WBC,Urine 4 /hpf (0-5)
--- NOTE | 2022-03-13 15:49 | XR ---
EXAMINATION TYPE: XR chest 2V DATE OF EXAM: 03/13/2022 COMPARISON: 03/03/2022 HISTORY: Chest pain TECHNIQUE: 2 view FINDINGS: Heart is normal. Lungs are clear of infiltrate. No heart failure. There are no hilar masses . Bony thorax is intact. IMPRESSION: No active cardiopulmonary disease. Normal heart. No change.
[2022-03-13 16:22] VITALS: BP 117/81; PULSE 85
[2022-03-13 16:25] LABS: Appearance,Urine Clear (Clear); Bilirubin,Urine Negative (Negative); Blood,Urine Large (Negative); Color,Urine Colorless; Glucose,Urine (UA) Negative (Negative); Ketones,Urine 2+ (Negative); Leukocyte Esterase,Urine Negative (Negative); Nitrite,Urine Negative (Negative); Protein,Urine Negative (Negative); Specific Gravity,Urine 1.004 (1.001-1.035); Urobilinogen,Urine <2.0 mg/dL (<2.0)
== END 2022-03-13 16:47 | disposition home or self-care (01) ==
LOC: EC 14:19
DX: R07.89 Other chest pain (principal); R11.2 Nausea with vomiting, unspecified; Z91.040 Latex allergy status
CPT/HCPCS: 36415; 93005; 85379; 80053; 82150; 83690; 83735; 84484; 85025; 85610; 85730; 81001; 81025; 71046; 99285; 96374; 96375; 96361; J1200; J2405; J1885

== ENCOUNTER → 2022-06-08 | Outpatient (CLI) | payer OTHER ==
--- NOTE | 2022-06-10 07:23 | US ---
EXAMINATION TYPE: US thyroid st tissue head/neck DATE OF EXAM: 06/08/2022 COMPARISON: NONE CLINICAL HISTORY: E05.90 THYROTOXICOSIS. thyrotoxicosis, hoarse throat, voice is louder, on medicatio n for thyroid GLAND SIZE: Right Lobe: 5.0 x 1.6 x 1.6 cm Overall Parenchyma: homogenous Left Lobe: 4.9 x 1.0 x 1.5 cm Overall Parenchyma: homogeneous Isthmus Thickness: 0.2 cm NODULES RIGHT: # of nodules measured on right: 0 LEFT: # of nodules measured on left: 0 ISTHMUS: # of nodules measured in the isthmus: 0 Bilateral neck scanned, no evidence of lymphadenopathy. IMPRESSION: Borderline glandular enlargement. Otherwise unremarkable study. 2017 ACR TI-RADS LEVEL: *Highest TI-RADS level nodule reported
== END | disposition home or self-care (01) ==
LOC: RADUSWWP 13:39
PROVIDERS: ATTEND Family Medicine
DX: R59.9 Enlarged lymph nodes, unspecified (principal)
CPT/HCPCS: 76536

== ENCOUNTER → 2023-03-14 | Outpatient (CLI) | payer OTHER ==
[2023-03-14 15:32] LABS: Partial Thromboplastin Time 28.8 sec (22.0-30.0); Prothrombin Time 10.4 sec (9.0-12.0)
[2023-03-14 20:51] LABS: BUN/Creat Ratio 19.86 Ratio (12.00-20.00); Blood Urea Nitrogen 13.9 mg/dL (9.0-27.0); Calcium 9.7 mg/dL (8.7-10.3); Chloride 101 mmol/L (96-109); Glucose 147 mg/dL (70-110); Potassium 4.1 mmol/L (3.5-5.5); Sodium 140 mmol/L (135-145)
[2023-03-14 23:45] LABS: HCT 42.4 % (37.2-46.3); HGB 13.7 d/dL (12.0-15.0); MCH 34.3 pg (27.0-32.0); MCHC 32.3 d/dL (32.0-37.0); NRBC Per 100 WBC 0 X 10*3/uL (0.00-0.01); Platelet Count 320 X 10*3/uL (140-440); RDW 13.2 % (11.5-14.5); WBC 5.73 X 10*3/uL (4.50-10.00)
== END | disposition home or self-care (01) ==
LOC: LABWHC1 14:41
PROVIDERS: ATTEND Otolaryngology Otolaryngology/Facial Plastic Surgery
DX: Z01.812 Encounter for preprocedural laboratory examination (principal)
CPT/HCPCS: 36415; 80048; 85027; 85610; 85730

== ENCOUNTER 2024-05-27 19:55 | Inpatient (IN) | payer MEDICAID, OTHER ==
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
[2024-05-27] MEDS: LIDOCAINE 1%-EPI 1:100,000 20 ML VIAL SQ STA (21:09)
[2024-05-27] MEDS: ALPRAZolam 0.5 MG TAB PO STA (21:09)
[2024-05-28] MEDS: LORazepam 1 MG TAB PO STA ×3 (04:21→14:49)
[2024-05-28] MEDS ORDERED: ACETAMINOPHEN TAB 325 MG TAB PO PRN (15:27)
[2024-05-28] MEDS ORDERED: MAGNESIUM HYDROXIDE 2,400 MG/30 ML CUP PO PRN (15:27)
[2024-05-28] MEDS ORDERED: haloperidoL 5 MG TAB PO PRN (15:30)
[2024-05-28] MEDS ORDERED: LORazepam 2 MG/ML INJ IM PRN (15:30)
[2024-05-28] MEDS ORDERED: HALOPERIDOL LACTATE 5 MG/ML 1 ML VIAL IM PRN (15:30)
[2024-05-28] MEDS ORDERED: chlordiazePOXIDE 25 MG CAP PO SCH (16:00)
[2024-05-28] MEDS: methIMAzole 5 MG TAB PO SCH (21:12)
--- NOTE | 2024-05-29 02:58 | P.CONS ---
History of Present Illness - Reason for Consult Consult date: 05/29/24 - History of Present Illness The patient is a 38-year-old female with PMH of Graves' disease on methimazole who was brought into the emergency room for homicidal and suicidal ideation. The patient was reportedly waving around a knife and had tried to kill her and herself. She had harmed herself by cutting her left forearm. The patient was admitted to the mental health unit where she was seen and evaluated while accompanied by MHU RN. The patient reports that she was diagnosed with Graves' disease several years ago and has been following with her PCP who is closely monitoring her thyroid studies. The patient had declined radioactive iodine ablation and wanted to allow the thyroid to " burnout" on its own. She notes that her PCP is currently coming down on her methimazole as her thyroid levels were too low. She otherwise is denying any active complaints at the time of interview. Denied experiencing chest discomfort, short breath, fever, chill, cough, nausea, vomit, abdominal pain, diarrhea. Patient denied tobacco, illicit substance, alcohol use. Review of systems: Pertinent positives and negatives as discussed in HPI, a complete review of systems was performed and all other systems are negative. Physical examination: General: non toxic, no distress, appears at stated age, normal weight Derm: Left forearm laceration with stitches in place, no unusual ecchymoses, warm, dry Head: atraumatic, normocephalic, symmetric Eyes: EOMI, no lid lag, anicteric sclera ENT: Nose and ears atraumatic, no thrush, no pharyngeal erythema Neck: trachea midline, supple Mouth: no lip lesion, mucus membranes moist Cardiovascular: S1S2 reg, no murmur, no edema Lungs: CTA bilateral, no rhonchi, no rales , no accessory muscle use Abdominal: soft, nontender to palpation, no guarding Ext: no gross muscle atrophy, no contractures, Neuro: No gross focal neuro deficits noted Psych: Alert, oriented, appropriate affect Assessment: Graves' disease, on methimazole Homicidal and suicidal ideation Imaging: None performed Data Review: Respiratory viral panel negative thus far with remaining laboratory evaluation pending including thyroid studies Plan: Follow-up thyroid studies Continue patient's home methimazole dosing Thank you for allowing us to participate in the care of this patient. We will follow peripherally. Do not hesitate to contact us with questions. Someone can be reached from the [facility]– [place]Note 2[place] hospitalist group at all hours of the day at [phone]. Past Medical History Past Medical History: Thyroid Disorder Additional Past Medical History / Comment(s): Graves disease, hashimotos; occ rapid HR/palpitations. c/o wgt loss, abd pain, bloating, diarrhea. c/o joint pain, stiffness. Poss megaloblastic anemia. History of Any Multi-Drug Resistant Organisms: None Reported Past Surgical History: Breast Surgery, Section Additional Past Surgical History / Comment(s): C-S x3. Breast implants x2, then removed last silicone implants. Past Anesthesia/Blood Transfusion Reactions: Motion Sickness, Postoperative Nausea & Vomiting (PONV) Past Psychological History: Anxiety, Depression Smoking Status: Never smoker Past Alcohol Use History: Occasional Past Drug Use History: None Reported - Past Family History Mother Family Medical History: No Reported History Medications and Allergies Home Medications Medication Instructions Recorded Confirmed Type ALPRAZolam [Xanax] 0.25 mg PO BID 02/01/20 05/28/24 History Dextroamphetamine/Amphetamine 20 mg PO BID 05/28/24 05/28/24 History [Adderall] methIMAzole 10 mg PO Q48H 05/28/24 05/28/24 History Allergies Allergy/AdvReac Type Severity Reaction Status Date / Time silicone Allergy blisters, Verified 05/28/24 19:46 multiple symptoms Physical Exam Vitals: Vital Signs Temp Pulse Pulse Resp BP BP Pulse Ox 05/28/24 15:26 98.3 F 100 16 137/87 98 05/28/24 14:50 84 18 123/92 99 05/28/24 07:51 98 18 120/87 99 05/28/24 04:19 89 17 124/85 100 Intake and Output 05/28/24 05/28/24 05/29/24 14:59 22:59 06:59 Other: Weight 46.675 kg
[2024-05-29 08:47] LABS: Appearance,Urine Cloudy (Clear); Bacteria,Urine Rare /hpf; Bilirubin,Urine Negative (Negative); Blood,Urine Moderate (Negative); Color,Urine Yellow; Glucose,Urine (UA) Negative (Negative); Hyaline Casts,Urine 5 /lpf (0-2); Ketones,Urine Trace (Negative); Leukocyte Esterase,Urine Negative (Negative); Mucus,Urine Many /hpf; Nitrite,Urine Negative (Negative); PH, Urine 6.5 (5.0-8.0); Protein,Urine Trace (Negative); RBC,Urine 1 /hpf (0-5); Specific Gravity,Urine 1.019 (1.001-1.035); Squamous Epithelial Cell,Urine 5 /hpf (0-4); Urobilinogen,Urine <2.0 mg/dL (<2.0); WBC,Urine 7 /hpf (0-5)
[2024-05-29 11:19] LABS: Basophils # (A) 0.1 k/uL (0-0.2); Basophils % (A) 1 %; Eosinophils # (A) 0.1 k/uL (0-0.7); Eosinophils % (A) 1 %; HCT 49.3 % (34.0-46.0); Lymphocytes # (A) 0.6 k/uL (1.0-4.8); Lymphocytes % (A) 11 %; MCH 35.9 pg (25.0-35.0); MCHC 32.6 g/dL (31.0-37.0); MCV 110.1 fL (80.0-100.0); Macrocytosis Marked; Mean Platelet Volume 8.4; Monocytes # (A) 0.3 k/uL (0-1.0); Monocytes % (A) 6 %; Neutrophils # (A) 4.6 k/uL (1.3-7.7); Neutrophils % (A) 80 %; Platelet Count 379 k/uL (150-450); RBC 4.47 m/uL (3.80-5.40); RDW 13.3 % (11.5-15.5); WBC 5.7 k/uL (3.8-10.6)
[2024-05-29 11:33] LABS: ALT 26 U/L (4-34); AST 47 U/L (14-36); African American GFR (CKD) >90 (>60 ml/min/1.73 sqM); Albumin 5.1 g/dL (3.5-5.0); Alkaline Phosphatase 81 U/L (38-126); Anion Gap 9 mmol/L; Bilirubin, Delta 0.4 mg/dL (0.0-0.2); Blood Urea Nitrogen 8 mg/dL (7-17); Calcium 10.6 mg/dL (8.4-10.2); Carbon Dioxide 26 mmol/L (22-30); Chloride 102 mmol/L (98-107); Glucose 139 mg/dL (74-99); Non-African American GFR(CKD) >90 (>60 ml/min/1.73 sqM); Potassium 4.2 mmol/L (3.5-5.1); Sodium 137 mmol/L (137-145); Total Bilirubin 1.4 mg/dL (0.2-1.3); Total Protein 8.9 g/dL (6.3-8.2)
[2024-05-29 18:24] LABS: Urine Alcohol Negative (Negative); Urine Barbiturate Negative (Negative); Urine Cocaine Negative (Negative); Urine Methadone Negative (Negative); Urine Opiates Negative (Negative); Urine Phencyclidine Negative (Negative)
[2024-05-30 01:37] LABS: Chol/HDL Ratio 1.58 Ratio; LDL Cholesterol,Calculated 63.6 mg/dL (0.0-131.0)
[2024-05-30] MEDS: PARoxetine 10 MG TAB PO SCH (09:05)
[2024-05-30] MEDS: MAG HYDROX/AL HYDROX/SIMETH 355 ML BOTTLE PO PRN (12:27)
--- NOTE | 2024-05-30 14:36 | P.HP ---
Psychiatric H&P - . H&P Date: 05/29/24 History & Physical: Allergies Allergy/AdvReac Type Severity Reaction Status Date / Time silicone Allergy blisters, Verified 05/28/24 19:46 multiple symptoms Vital Signs Temp 98.3 F 05/28/24 15:26 Pulse 85 05/30/24 06:51 Resp 16 05/28/24 15:26 BP 109/77 05/30/24 06:51 Pulse Ox 98 05/28/24 15:26 FiO2 Laboratory Last Values WBC 5.7 k/uL (3.8-10.6) 05/29/24 10:46 RBC 4.47 m/uL (3.80-5.40) 05/29/24 10:46 Hgb 16.0 gm/dL (11.4-16.0) 05/29/24 10:46 Hct 49.3 % (34.0-46.0) H 05/29/24 10:46 MCV 110.1 fL (80.0-100.0) H 05/29/24 10:46 MCH 35.9 pg (25.0-35.0) H 05/29/24 10:46 MCHC 32.6 g/dL (31.0-37.0) 05/29/24 10:46 RDW 13.3 % (11.5-15.5) 05/29/24 10:46 Plt Count 379 k/uL (150-450) 05/29/24 10:46 MPV 8.4 05/29/24 10:46 Neutrophils % 80 % 05/29/24 10:46 Lymphocytes % 11 % 05/29/24 10:46 Monocytes % 6 % 05/29/24 10:46 Eosinophils % 1 % 05/29/24 10:46 Basophils % 1 % 05/29/24 10:46 Neutrophils # 4.6 k/uL (1.3-7.7) 05/29/24 10:46 Lymphocytes # 0.6 k/uL (1.0-4.8) L 05/29/24 10:46 Monocytes # 0.3 k/uL (0-1.0) 05/29/24 10:46 Eosinophils # 0.1 k/uL (0-0.7) 05/29/24 10:46 Basophils # 0.1 k/uL (0-0.2) 05/29/24 10:46 Manual Slide Review Performed 05/29/24 10:46 Macrocytosis Marked A 05/29/24 10:46 Sodium 137 mmol/L (137-145) 05/29/24 10:46 Potassium 4.2 mmol/L (3.5-5.1) 05/29/24 10:46 Chloride 102 mmol/L (98-107) 05/29/24 10:46 Carbon Dioxide 26 mmol/L (22-30) 05/29/24 10:46 Anion Gap 9 mmol/L 05/29/24 10:46 BUN 8 mg/dL (7-17) 05/29/24 10:46 Creatinine 0.63 mg/dL (0.52-1.04) 05/29/24 10:46 Est GFR (CKD-EPI)AfAm >90 (>60 ml/min/1.73 sqM) 05/29/24 10:46 Est GFR (CKD-EPI)NonAf >90 (>60 ml/min/1.73 sqM) 05/29/24 10:46 Glucose 139 mg/dL (74-99) H 05/29/24 10:[address] Glu mg/dL 105 mg/dL 05/29/24 10:46 Hemoglobin A1c 5.3 % (<=6.0) 05/29/24 10:46 Calcium 10.6 mg/dL (8.4-10.2) H 05/29/24 10:46 Total Bilirubin 1.4 mg/dL (0.2-1.3) H 05/29/24 10:46 Conjugated Bilirubin 0.0 mg/dL (0.0-0.3) 05/29/24 10:46 Unconjugated Bilirubin 1.0 mg/dL (0.0-1.1) 05/29/24 10:46 Delta Bilirubin 0.4 mg/dL (0.0-0.2) H 05/29/24 10:46 AST 47 U/L (14-36) H 05/29/24 10:46 ALT 26 U/L (4-34) 05/29/24 10:46 Alkaline Phosphatase 81 U/L (38-126) 05/29/24 10:46 Total Protein 8.9 g/dL (6.3-8.2) H 05/29/24 10:46 Albumin 5.1 g/dL (3.5-5.0) H 05/29/24 10:46 Triglycerides 117.00 mg/dL (0.00-149.00) 05/29/24 10:46 Cholesterol 236.00 mg/dL (0.00-200.00) H 05/29/24 10:46 LDL Cholesterol, Calc 63.6 mg/dL (0.0-131.0) 05/29/24 10:46 VLDL Cholesterol, Calc 23.40 mg/dL (5.00-40.00) 05/29/24 10:46 HDL Cholesterol 149.00 mg/dL (40.00-60.00) H 05/29/24 10:46 Cholesterol/HDL Ratio 1.58 Ratio 05/29/24 10:46 TSH 1.050 mIU/L (0.465-4.680) 05/29/24 10:46 Urine Color Yellow 05/29/24 08:30 Urine Appearance Cloudy (Clear) H 05/29/24 08:30 Urine pH 6.5 (5.0-8.0) 05/29/24 08:30 Ur Specific [place] 1.019 (1.001-1.035) 05/29/24 08:30 Urine Protein Trace (Negative) H 05/29/24 08:30 Urine Glucose (UA) Negative (Negative) 05/29/24 08:30 Urine Ketones Trace (Negative) H 05/29/24 08:30 Urine Blood Moderate (Negative) H 05/29/24 08:30 Urine Nitrite Negative (Negative) 05/29/24 08:30 Urine Bilirubin Negative (Negative) 05/29/24 08:30 Urine Urobilinogen <2.0 mg/dL (<2.0) 05/29/24 08:30 Ur Leukocyte Esterase Negative (Negative) 05/29/24 08:30 Urine RBC 1 /hpf (0-5) 05/29/24 08:30 Urine WBC 7 /hpf (0-5) H 05/29/24 08:30 Ur Squamous Epith Cells 5 /hpf (0-4) H 05/29/24 08:30 Urine Bacteria Rare /hpf (None) H 05/29/24 08:30 Hyaline Casts 5 /lpf (0-2) H 05/29/24 08:30 Urine Mucus Many /hpf (None) H 05/29/24 08:30 Urine HCG, Qual Not Detected (Not Detectd) 05/29/24 08:30 Urine Opiates Screen Negative (Negative) 05/29/24 08:30 Urine Methadone Screen Negative (Negative) 05/29/24 08:30 Ur Propoxyphene Screen Negative (Negative) 05/29/24 08:30 Urine Barbiturates Negative (Negative) 05/29/24 08:30 Ur Phencyclidine Scrn Negative (Negative) 05/29/24 08:30 Ur Amphetamine Screen Negative (Negative) 05/29/24 08:30 U Benzodiazepines Scrn Positive (Negative) A 05/29/24 08:30 Urine Cocaine Screen Negative (Negative) 05/29/24 08:30 U Cannabinoids Screen Negative (Negative) 05/29/24 08:30 Urine Alcohol Negative (Negative) 05/29/24 08:30 U Creatinine Drug Scrn 341.0 mg/dL (>=20.0) 05/29/24 08:30 Influenza Type A (PCR) Not Detected (Not Detectd) 05/28/24 06:36 Influenza Type B (PCR) Not Detected (Not Detectd) 05/28/24 06:36 RSV (PCR) Not Detected (Not Detectd) 05/28/24 06:36 SARS-CoV-2 (PCR) Not Detected (Not Detectd) 05/28/24 06:36 05/29/24 14:34 Psychiatric Evaluation Identifying Data: Ms. Garcia, is 38 years old, , female, who lives in [place], [place] with her and 3 children. Chief Complaint: Depression. History of Psychiatric Illness- The patient noted that she had an argument with her over drinking while doing the lawn work. The patient noted that she has [address]. Following the argument, the patient got upset and started working on her lawn angrily, in process she accidently cut herself on the left forearm. The gotl mad over it and called 911 and alleged that she cut herself on purpose and threatened him too. As per patient, her asked her to go to her moms house but she refused because it is her house too. She feels all this could have been avoided, if went to her mothers house. The patient noted that she was doing fine prior to the argument. She was enjoying the yardwork and relaxing. She like to do yardwork. The patient noted that she is on Adderall and Xanax prescribed to her by her PCP. She has ADHD. She takes Xanax for sleep at night. She has not been under psychiatric treatment for approximately year and half. She was going [facility] for depression secondary to breast implant. She was given therapy and Wellbutrin, Celexa. Past Psychiatric History: The patient first sought psychiatric treatment at age 13 for depression, anxiety and behavioral issues. She was in treatment for approximately a year. The patient was in therapy and given medications. She does not remember the names of the medications. At age 18 had a bout of depression secondary to relationship issues. The patient does not what medication she was discharged. She denied out-pt treatment after the discharge. She denied any other out-pt or in-pt treatment after that except going to [facility]. Leading questions: The patient denied Depression and Anxiety. Denied SI or HI. Denied symptoms consistent with psychosis Drugs and alcohol history: The patient noted that she abuses Alcohol over the weekends. She denied use of any other drugs. Tobacco use: None Past Medical history: Graves Disease, Family History of Psychiatric Disorder: The patients cousin committed suicide. The patient does not know the details. Social History and Family History: The patient was born and raised in [place]. She grew-up by herself. She finished [employer]. 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 She is for 14 years. She has 3 kids. OTC: Allergies Objective: MSE: Alert and attentive. Orientation times three Dressed and Groomed: Appropriately. Pleasant and cooperative. Psychomotor Activity: Normal. Speech: Normal in tone, quality, and quantity. Mood: Anxious and upset. Affect: Appropriate to the mood. SI or HI: None. Perceptual disturbance: None. Thought Content: No paranoia or other delusional thinking noted. Thought Process: Normal. Cognition: Intact Judgment and Insight: Fair. AIMS: Normal Labs: Available labs reviewed. Diagnosis: Adjustment Disorder with mixed emotional state. Alcohol Abuse Plan and Recommendations: Paxil 10 mg po daily. Monitor MS and side effects of medications and adjust medications accordingly. Provide supportive psychotherapy and psychoeducation. The patient provided psychoeducation. The patient provided with substance abuse counselling and advised to attend AA/NA Smoke cessation therapy. The patient to attend [facility]. CBC with Diff, CMP, TSH, Lipid Profile, HbA1c, Test - declined. The patient had tubal ligation in 2011. Medication Consent with explanation of risk/benefits and side effects: Explained and obtained.
--- NOTE | 2024-05-30 14:37 | P.PN ---
Progress Note - Text Progress Note Date: 05/30/24 Follow-up Mediation Review Chief Complaint: I am feeling better. Subjective: The patient noted that she has been feeling better. She took her medications. She feels that just being here and talking to other patients and attending group is helping her. She has talked to her too. She wants to go for marriage counseling. She is in denial of alcohol abuse. The patient has been attending the groups. The participation is good. The interaction with staff and peers is limited good. The patient is compliant with treatment recommendations. Leading questions: The patient admitted to Depression and Anxiety. Denied SI or HI. Denied symptoms consistent with psychosis Sleep and Appetite: Has been improving. Change in family/ living/job/financial/daily routine: No change. Change in medical condition: No change. Change in medications: The patient is on Paxil 10 mg daily. Side effects from Medications: None. Objective- MSE: Alert and attentive. Orientation times three. Dressed and Groomed: Appropriately. Pleasant and cooperative. Psychomotor Activity: Normal. Speech: Normal in tone, quality, and quantity. Mood: I am better. Affect: Appropriate to the mood. SI or HI: None. Perceptual disturbance: None. Thought Content: No paranoia or other delusional thinking noted. Thought Process: Normal. Cognition: Intact Judgment and Insight: Poor AIMS: Normal. Labs: No new labs. Diagnosis: Plan and Recommendations: Continue current Medications. Monitor MS and side effects of medications and adjust medications accordingly. Provide supportive psychotherapy. The patient provided psychoeducation and advised The patient provided Substance abuse counseling. Smoke cessation therapy. The patient to attend lubin activities. Medication Consent with explanation of risk/benefits and side effects: Explained and obtained.
[2024-05-31] MEDS: LORazepam 1 MG TAB PO PRN (00:45)
[2024-05-31] MEDS: IBUPROFEN 600 MG TAB PO PRN (00:45)
--- NOTE | 2024-05-31 12:59 | P.PN ---
Progress Note - Text Progress Note Date: 05/31/24 Follow-up Mediation Review Chief Complaint: I had loose stools yesterday. Subjective: The patient noted that she had loose stools after taking Paxil and the new thyroid supplement. She does not know which medication cause it. She is going to take Paxil again today and see what happens. The patient noted that she is communicating with her . She feels, things are moving in right direction. The patient consented to talk to her . 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 The patient has been improving and appeared in better spirits. The patient wants to go to [facility] instead of rehab after discharge. The patient has been attending the groups. The participation is good. The interaction with staff and peers is limited good. The patient is compliant with treatment recommendations. Leading questions: The patient admitted to Depression and Anxiety. Denied SI or HI. Denied symptoms consistent with psychosis Sleep and Appetite: Has been improving. Change in family/ living/job/financial/daily routine: No change. Change in medical condition: No change. Change in medications: None. Side effects from Medications: The patient noted having loose stools. Objective- MSE: Alert and attentive. Orientation times three. Dressed and Groomed: Appropriately. Pleasant and cooperative. Psychomotor Activity: Normal. Speech: Normal in tone, quality, and quantity. Mood: I am better. Affect: Appropriate to the mood. SI or HI: None. Perceptual disturbance: None. Thought Content: No paranoia or other delusional thinking noted. Thought Process: Normal. Cognition: Intact Judgment and Insight: Poor AIMS: Normal. Labs: No new labs. Diagnosis: No change. Plan and Recommendations: Continue current Medications. Monitor MS and side effects of medications and adjust medications accordingly. Provide supportive psychotherapy. The patient provided psychoeducation and advised The patient provided Substance abuse counseling. Smoke cessation therapy. The patient to attend lubin activities. Medication Consent with explanation of risk/benefits and side effects: Explained and obtained
[2024-06-01] MEDS ORDERED: NICOTINE GUM (POLACRILEX) 2 MG GUM BUCCAL ONE (11:14)
--- NOTE | 2024-06-01 15:06 | P.PN ---
Progress Note - Text Progress Note Date: 06/01/24 Interval history: Patient was seen in the lounge and was directable and agreeable to speak with scenario writer. [Return to her room where we spoke briefly she reports feeling "good" and has had some helpful conversations with her . She shared a list of goals that she created in addition to a list of individuals who she feels she can rely upon for support. She is increasingly aware of the impact on grief on her alcohol use and how that impacts her overall mental health and wellbeing. She is interested in leaving the hospital early next week and is looking forward to returning home where she feels she can begin to make a plan to move forward with her spouse. She explained that they tend to escalate in their arguments when they have both been drinking, and they are noticing the impact that alcohol has on their relationship overall. She expressed a commitment and desire to abstain from alcohol after discharge. At this time patient denies any suicidal or homicidal ideations intent or plan. Denies any Auditory or visual hallucinations. Patient has been feeling drowsy since starting Paxil and continues to have GI distress (diarrhea, nausea). Mental status exam: General Appearance: [Patient appears to be stated age is alert, directable, and cooperative.] Behavior: [No agitated behavior. Patient is calm and directable] Speech: Patient's speech is fluent and nonpressured. Mood/Affect: Mood is "good", affect is congruent and constricted. Suicidality/Homicidality: Patient denies having any suicidal or homicidal ideation intent or plan. Perceptions: Patient denies any auditory or visual hallucinations. Though content/process: [There is no evidence of any delusional thought content and thought process is linear and goal-directed.] Memory and concentration: AOX3, grossly intact for the purposes of this session Judgment and insight: improving mildly and fair Assessment/Plan: Continue with current diagnosis. Patient continues to meet criteria for inpatient psychiatric admission for symptom stabilization and safety. Patient will be maintained on current psychotropic medication regimen. Will adjust timing of Paxil from morning to bedtime to help decrease drowsiness. Monitor for medication compliance and for any psychotropic medication side effects. Expect GI distress will continue to improve. Will continue to monitor ongoing response to treatment. Encouraged participation in milieu.
--- NOTE | 2024-06-02 18:21 | P.PN ---
Progress Note - Text Progress Note Date: 06/02/24 Interval history: Patient was seen in the hallway and was directable and agreeable to speak with filing writer in the office. Described her mood as "happy" today continues to feel hopeful and optimistic about making changes in her life and marriage. She shared several documents that she has been working on in regards to things that she enjoys about her marriage, things that she would like to change for herself, and things that she would like to see her do differently. We discussed these and explored some ways that she can communicate these desires with him. She slept okay last night had a little disruption due to another patient but has found that she is feeling less sleepy today. GI distress has improved today as well. She denies suicidal ideation and homicidal ideation intent and plan. She has not experienced any alcohol craving. Discussed whether naltrexone might be helpful for her to decrease alcohol craving and binge drinking. Patient was seen later after initial visit and was a bit more tearful due to her anxiety about continuing to be in the hospital and sadness that she is not presently being discharged. We explored these feelings and discussed the need for a solid discharge plan with follow-up in order to give her the best opportunity for success after she leaves the hospital. She is understanding of this approach but did feel sad. Mental status exam: General Appearance: Patient appears to be stated age is alert, directable, and cooperative. Behavior: No agitated behavior. Patient is calm and directable Speech: Patient's speech is fluent and nonpressured. Mood/Affect: Mood is "happy", affect is congruent and constricted. Suicidality/Homicidality: Patient denies having any suicidal or homicidal ideation intent or plan. Perceptions: Patient denies any auditory or visual hallucinations. Though content/process: There is no evidence of any delusional thought content and thought process is linear and goal-directed. Memory and concentration: AOX3, grossly intact for the purposes of this session Judgment and insight: improving mildly and fair Assessment/Plan: Continue with current diagnoses: Alcohol use disorder, severe and Unspecified Depressive disorder Patient continues to meet criteria for inpatient psychiatric admission for sym ptom stabilization and safety. Patient will be maintained on current psychotropic medication regimen. Continue Paxil 10 mg at bedtime. Will continue to decrease Librium; down to 10 mg TID today. Monitor for medication compliance and for any psychotropic medication side effects. Will continue to monitor ongoing response to treatment. Encouraged participation in milieu.
[2024-06-02] MEDS: PARoxetine 10 MG TAB PO SCH (20:10)
[2024-06-03 10:25] VITALS: BP 121/81; PULSE 91; RESP 14; TEMP 97.8
--- NOTE | 2024-06-03 11:35 | P.PN ---
Progress Note - Text Progress Note Date: 06/03/24 Interval History: Patient was seen in the hallway and was directable and agreeable to speak with customs entry writer in the office. Patient described her mood as "happy" today. She was able to cope with yesterday's disappointment regarding the discharge timeline. 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 However, she recognizes the process she has journeyed through during this admission in regards to caring for her needs, navigating potential symptoms of alcohol withdrawal, and planning for her [place] of support and care as an outpatient. She is feeling hopeful about the future and feels her mood is stable. She denies any feelings of depression at present. She slept okay last night.. At this time patient denies any suicidal or homical ideations, intent or plan. Patient denies any auditory, visual hallucinations and denies any paranoia or delusions. Her GI symptoms have improved. Last night was the first time taking Paxil in the evening instead of the morning. She explained that she would like to discontinue Librium she did not take her evening or morning dose and prefers that this medication be discontinued. Mental Status Exam: General Appearance: Patient appears to be stated age is alert, directable, and cooperative. Behavior: Patient is calmly seated without any agitated behavior. Speech: Patient's speech is fluent and nonpressured. Mood/Affect: Mood is "happy", affect is congruent and euthymic. Suicidality/Homicidality: Patient denies having any suicidal or homicidal ideation intent or plan. Perceptions: Patient denies any visual hallucinations and denies any auditory hallucinations Though content/process: There is no evidence of any delusional thought content and thought process is linear and goal-directed. Memory and concentration: AOX3, grossly intact for the purposes of this session Judgment and insight: Fair, improving Assessment - Alcohol use disorder, severe, binge pattern - Unspecified depressive disorder Plan: -Patient continues to meet criteria for inpatient psychiatric admission for symptom stabilization and safety. -Medications: - Continue Paxil 10 mg daily -Discontinue Librium; patient has declined her last 2 doses and given the long half-life of this medication and recent taper to a lower dose that is reasonable to discontinue at this time. -When necessary Ativan and Haldol for agitation/aggression. -NRT - not needed -SW on board for discharge planning. Encouraged the patient to participate in milieu.
== END 2024-06-03 18:19 | disposition short-term general hospital (02) | DRG 754 ==
LOC: EC 19:55 → 3MHU 05-28 15:04
PROVIDERS: ADMIT Psychiatry & Neurology Psychiatry; ATTEND Psychiatry & Neurology Psychiatry
PROC: 0HQEXZZ Repair Left Lower Arm Skin, External Approach (ICD-10-PCS; principal; 2024-05-28)
DX: F32.A Depression, unspecified (principal); R45.850 Homicidal ideations; R45.851 Suicidal ideations; S51.812A Laceration without foreign body of left forearm, initial encounter; E05.00 Thyrotoxicosis with diffuse goiter without thyrotoxic crisis or storm; F10.90 Alcohol use, unspecified, uncomplicated; F41.9 Anxiety disorder, unspecified; F90.9 Attention-deficit hyperactivity disorder, unspecified type; X78.1XXA Intentional self-harm by knife, initial encounter; Y99.8 Other external cause status; Z98.51 Tubal ligation status; Z98.82 Breast implant status; Z79.890 Hormone replacement therapy; Z79.899 Other long term (current) drug therapy
CPT/HCPCS: 80053; 80061; 80306; 81001; 81025; 82075; 82248; 82607; 82747; 83036; 84443; 85025; 87636; 99285

== ENCOUNTER 2024-06-03 17:50 | Observation (INO) | payer OTHER ==
[2024-06-03] MEDS ORDERED: DOCUSATE 100 MG CAP PO PRN (19:58)
[2024-06-03] MEDS ORDERED: NALOXONE 0.4 MG/ML 1 ML VIAL IV PRN (19:58)
[2024-06-03] MEDS ORDERED: MELATONIN 3 MG TABLET PO PRN (19:58)
[2024-06-03] MEDS ORDERED: BENZOCAINE/MENTHOL LOZENG 1 EACH LOZENGE MUCOUS MEM PRN (19:58)
[2024-06-03] MEDS: methIMAzole 5 MG TAB PO SCH (21:05)
[2024-06-03] MEDS: IBUPROFEN 400 MG TAB PO PRN (21:56)
[2024-06-03] MEDS: ALPRAZolam 0.25 MG TAB PO PRN (21:56)
[2024-06-03] MEDS: PARoxetine 10 MG TAB PO SCH (21:56)
[2024-06-03] MEDS: ACETAMINOPHEN TAB 325 MG TAB PO PRN (23:01)
--- NOTE | 2024-06-04 00:08 | P.CONS ---
History of Present Illness - Reason for Consult Consult date: 06/03/24 covid - Chief Complaint covid positive - History of Present Illness Patient is a 29-year-old female with Graves' disease on methimazole was admitted to the behavioral health unit for suicidal and homicidal ideation. She was transferred to due to being COVID-19 positive. patient was admitted for suicidal ideation , however, one of the residents tested positive for COVID, and per floor protocol , everyone got tested, this patient test came back positive, she denies any symptoms like fever, cough, headache,runny nose, SOB , chest pain , nausea or vomiting patient reports that her PCP is weaning her off her methimazole and she is only taking it twice a week at this point, she does not follow up with endocrine Review of systems: Pertinent positives and negatives as discussed in HPI, a complete review of systems was performed and all other systems are negative. Physical examination: Vitals: T 98.5 F, [place] 100, RR 16, BP 122/85, O2 sat 100% on room air General: non toxic, no distress, appears at stated age Psych: Alert, oriented person place and time denies suicidal/homicidal ideation lungs clear to auscultation bilaterally , no wheezing rhonchi or rales heart, normal s1 s2 , RRR, no MGR, no peripheral edema , DP positive bilaterally abd , soft lax NT ND , BS positive Assessment and Plan: Patient is a 38-year-old female with Graves' disease was admitted to mental health unit for suicidal ideation who was transferred to the floor due to being COVID-19 positive. i discussed the case with MHU staff, and I accepted the admission for monitoring of COVID symptoms with anticipated length of stay <2 midnights #. COVID-19 Patient afebrile, continue to monitor vitals and symptoms asymptomatic at this time #. Graves' disease Methimazole 10 mg p.o. every 48 hour ROX #. Suicidal/homicidal ideation Continue management by psych psych consult DVT PPX lovenox 40 mg sc daily full code Past Medical History Past Medical History: Thyroid Disorder Additional Past Medical History / Comment(s): Graves disease, hashimotos; occ rapid HR/palpitations. c/o wgt loss, abd pain, bloating, diarrhea. c/o joint pain, stiffness. Poss megaloblastic anemia. History of Any Multi-Drug Resistant Organisms: None Reported Past Surgical History: Breast Surgery, Section Additional Past Surgical History / Comment(s): C-S x3. Breast implants x2, then removed last silicone implants. Past Anesthesia/Blood Transfusion Reactions: Motion Sickness, Postoperative Nausea & Vomiting (PONV) Past Psychological History: Anxiety, Depression Additional Psychological History / Comment(s): occasional panic attacks Smoking Status: Never smoker Past Alcohol Use History: Occasional Additional Past Alcohol Use History / Comment(s): Reports drinking 4-5 Truly 2- 3x/week, Past Drug Use History: None Reported Additional Drug Use History / Comment(s): uses edible at night for sleep - Past Family History Mother Family Medical History: No Reported History Medications and Allergies Home Medications Medication Instructions Recorded Confirmed Type ALPRAZolam [Xanax] 0.25 mg PO BID 02/01/20 06/03/24 History Dextroamphetamine/Amphetamine 20 mg PO BID 05/28/24 06/03/24 History [Adderall] methIMAzole 10 mg PO Q48H 05/28/24 06/03/24 History Allergies Allergy/AdvReac Type Severity Reaction Status Date / Time silicone Allergy blisters, Verified 05/28/24 19:46 multiple symptoms Physical Exam Vitals: Vital Signs Temp Pulse Resp BP Pulse Ox 06/03/24 20:00 98.5 F 100 16 122/85 100 Intake and Output 06/03/24 06/03/24 06/03/24 06:59 14:59 22:59 Other: Weight 47.627 kg Assessment and Plan Assessment: I independently saw and examined the patient , I discussed the case with the resident, reviewed the H&P and A&P and amended the note where necessary
[2024-06-04] MEDS: ALPRAZolam 0.25 MG TAB PO STA (01:10)
[2024-06-04 03:14] VITALS: TEMP 98.2
[2024-06-04] MEDS: ENOXAPARIN 40 MG/0.4 ML SYRINGE SQ SCH (07:52)
[2024-06-04] MEDS: ONDANSETRON 4 MG/2 ML VIAL IVP PRN (08:11)
[2024-06-04 10:41] LABS: ALT 23 U/L (8-44); AST 19 U/L (13-35); Albumin 4.4 g/dL (3.8-4.9); Albumin/Globulin Ratio 1.76 Ratio (1.60-3.17); Alkaline Phosphatase 57 U/L (41-126); BUN/Creat Ratio 12.33 Ratio (12.00-20.00); Blood Urea Nitrogen 7.4 mg/dL (9.0-27.0); Calcium 9.2 mg/dL (8.7-10.3); Carbon Dioxide 24.7 mmol/L (21.6-31.8); Chloride 101 mmol/L (96-109); Globulin 2.5 g/dL (1.6-3.3); Glucose 86 mg/dL (70-110); Potassium 3.9 mmol/L (3.5-5.5); Sodium 136 mmol/L (135-145); Total Bilirubin 0.2 mg/dL (0.3-1.2); Total Protein 6.9 g/dL (6.2-8.2)
[2024-06-04 10:46] LABS: Basophils # (A) 0.09 X 10*3/uL (0.00-0.10); Basophils % (A) 1.4 %; Eosinophils # (A) 0.19 X 10*3/uL (0.04-0.35); Eosinophils % (A) 2.9 %; HCT 42.2 % (37.2-46.3); HGB 13.9 g/dL (12.0-15.0); Lymphocytes # (A) 0.47 X 10*3/uL (0.90-5.00); Lymphocytes % (A) 7.1 %; MCH 35.5 pg (27.0-32.0); MCHC 32.9 g/dL (32.0-37.0); MCV 107.9 FL (80.0-97.0); Mean Platelet Volume 9.8 FL (9.5-12.2); Monocytes # (A) 0.72 X 10*3/uL (0.20-1.00); Monocytes % (A) 10.8 %; NRBC Per 100 WBC 0 X 10*3/uL (0.00-0.01); Neutrophils # (A) 5.14 X 10*3/uL (1.80-7.70); Neutrophils % (A) 77.3 %; Platelet Count 277 X 10*3/uL (140-440); RBC 3.91 X 10*6/uL (4.10-5.20); RDW 13.2 % (11.5-14.5); WBC 6.64 X 10*3/uL (4.50-10.00)
--- NOTE | 2024-06-04 13:01 | P.PN ---
Subjective Progress Note Date: 06/04/24 Hospital course: Patient is a 38-year-old female with a past medical history of Graves' disease on methimazole. She was admitted inpatient and inpatient mental health unit secondary to reports of suicidal and homicidal ideations however patient subsequently tested positive for COVID infection and was transferred to medical unit for medical management and placed on droplet plus contact precautions. Psychiatry following for management of suicidal/homicidal ideations. Physical exam: Patient was seen and fully evaluated at bedside this morning. She reports feeling mild stuffiness and postnasal drainage otherwise denies having any complaints including headache, lightheadedness, dizziness, chest pain, palpitations, shortness of breath, cough, abdominal pain, nausea, vomiting, or any other complaints. Patient reports feeling mildly anxious and calling [facility] to schedule outpatient therapy appointments. Vital signs reviewed and stable. General: Nontoxic, no distress and appears stated age. Derm: Skin warm and dry, normal coloration for ethnicity. Head: Atraumatic, normocephalic and symmetric. Eyes: EOM's intact, no lid lag, and anicteric sclera Mouth: no lip lesions, mucus membranes moist Cardiovascular: regular rate and rhythm with normal S1S2, no murmur, positive posterior tibial pulses bilaterally, and cap refill < 2 seconds. Lungs: Respirations even, regular, and unlabored on room air. Lungs CTA bilaterally, no rhonchi, no rales, no wheezing, and no accessory muscle usage. Abdominal: soft, nontender to palpation, no guarding, no appreciable organomega ly Ext: ROM intact. No gross muscle atrophy, no edema, no contractures Neuro: Speech clear, face symmetrical and CN II-XII grossly intact with no noted focal neuro deficits Psych: Alert and oriented to person, place, time, and situation. Appropriate and pleasant affect. Assessment and Plan of Care: COVID-19 infection -Symptomatic care and pain management. Tylenol 650 mg every 6 hours as needed for mild pain/fever, Mucinex 600 mg twice daily, and Cepacol lozenge every 4 hours as needed for sore throat. -Droplet plus contact precautions Graves' disease Continue methimazole 10 mg every 48 hours. Suicidal/homicidal ideations Anxiety and depression Psychiatry consulted Maintain safe and supportive care with continuous suicide precautions. Continue Paxil 10 mg nightly and Xanax 0.25 mg every 6 hours as needed for anxiety. Data and imaging reviewed: CBC showing macrocytosis with MCV 107.9 otherwise normal findings. BMP unremarkable. Blood glucose 86. Liver profile normal findings. Vital signs reviewed. Blood pressure 118/79, heart rate 93, respiratory rate 16, temp 98.2 F, and SpO2 of 98% on room air. CODE STATUS: Full code DVT prophylaxis: Lovenox Anticipated discharge date: Pending clinical course Anticipated discharge place: Discharge home versus return to inpatient psychiatric unit Patient was seen independently by Nurse Pracitioner. This document was prepared using [employer] dictation software. Please allow for errors in hematologist oncologist, while rare they do occur. Chapo Howell NP rendered care for this patient independently, reviewed the findings and plan as documented in the note above. I did not physically speak with or examine the patient on this date. Objective - Vital Signs Vital signs: Vital Signs Temp 98.2 F 06/04/24 07:22 Pulse 93 06/04/24 07:22 Resp 16 06/04/24 07:22 BP 118/79 06/04/24 07:22 Pulse Ox 98 06/04/24 07:22 FiO2 Intake & Output 06/03/24 06/04/24 06/04/24 18:59 06:59 18:59 Weight 47.627 kg Other: # Voids 3 - Labs CBC & Chem 7: 06/04/24 06:43 06/04/24 06:43
[2024-06-04] MEDS: guaiFENesin 600 MG TABLET.ER PO SCH (13:26)
[2024-06-04 14:23] VITALS: BP 111/69; PULSE 85; RESP 17
--- NOTE | 2024-06-04 16:38 | P.HPIM ---
History of Present Illness H&P Date: 06/03/24 Please see Medical Consult note written on 06/03/24 at 22:59 PM Chapo Howell NP rendered care for this patient independently, reviewed the findings and plan as documented in the note above. I did not physically speak with or examine the patient on this date. Past Medical History Past Medical History: Thyroid Disorder Additional Past Medical History / Comment(s): Graves disease, hashimotos; occ rapid HR/palpitations. c/o wgt loss, abd pain, bloating, diarrhea. c/o joint pain, stiffness. Poss megaloblastic anemia. History of Any Multi-Drug Resistant Organisms: None Reported Past Surgical History: Breast Surgery, Section Additional Past Surgical History / Comment(s): C-S x3. Breast implants x2, then removed last silicone implants. Past Anesthesia/Blood Transfusion Reactions: Motion Sickness, Postoperative Nausea & Vomiting (PONV) Past Psychological History: Anxiety, Depression Additional Psychological History / Comment(s): occasional panic attacks Smoking Status: Never smoker Past Alcohol Use History: Occasional Additional Past Alcohol Use History / Comment(s): Reports drinking 4-5 Truly 2- 3x/week, Past Drug Use History: None Reported Additional Drug Use History / Comment(s): uses edible at night for sleep - Past Family History Mother Family Medical History: No Reported History Medications and Allergies Home Medications Medication Instructions Recorded Confirmed Type ALPRAZolam [Xanax] 0.25 mg PO BID 02/01/20 06/03/24 History Dextroamphetamine/Amphetamine 20 mg PO BID 05/28/24 06/03/24 History [Adderall] methIMAzole 10 mg PO Q48H 05/28/24 06/03/24 History PARoxetine [Paxil] 10 mg PO HS 30 Days #30 tab 06/04/24 Rx Allergies Allergy/AdvReac Type Severity Reaction Status Date / Time silicone Allergy blisters, Verified 05/28/24 19:46 multiple symptoms Physical Exam Vitals: Vital Signs Temp Pulse Resp BP Pulse Ox 06/04/24 14:00 98.2 F 85 17 111/69 99 06/04/24 07:22 98.2 F 93 16 118/79 98 06/04/24 00:25 98.2 F 91 14 101/60 98 06/03/24 20:00 98.5 F 100 16 122/85 100 Intake and Output 06/04/24 06/04/24 06/04/24 06:59 14:59 22:59 Other: Voiding Method Toilet # Voids 3 Results CBC & Chem 7: 06/04/24 06:43 06/04/24 06:43 Labs: Abnormal Lab Results - Last 24 Hours (Table) 06/04/24 06/04/24 Range/Units 06:43 06:43 RBC 3.91 L (4.10-5.20) X 10*6/uL MCV 107.9 H (80.0-97.0) FL MCH 35.5 H (27.0-32.0) pg Lymphocytes # 0.47 L (0.90-5.00) X 10*3/uL BUN 7.4 L (9.0-27.0) mg/dL Total Bilirubin 0.2 L (0.3-1.2) mg/dL Thrombosis Risk Factor Assmnt - Choose All That Apply Any of the Below Risk Factors Present?: No Other Risk Factors: No Thrombosis Risk Factor Assessment Level: Very Low Risk
--- NOTE | 2024-06-04 16:39 | P.PN ---
Progress Note - Text Progress Note Date: 06/04/24 Follow-up Note: Chief Complaint: I feel fine. Subjective: The patient noted that she has been taking to her every day. She feels that they are making good progress. The patient is going to go for marital counseling after discharge. The patient's feels the patient is doing very good. He feels that she is ready for discharge. The patient appeared in good spirits. The patient wants to go to dual diagnosis clinic instead of rehab after discharge. Leading questions: The patient denied Depression and Anxiety. Denied SI or HI. Denied symptoms consistent with psychosis . Objective- MSE: Alert and attentive. Orientation times three. Dressed and Groomed: Appropriately. Pleasant and cooperative. Psychomotor Activity: Normal. Speech: Normal in tone, quality, and quantity. Mood: I feel good. Affect: Appropriate to the mood. Appeared in good spirits. SI or HI: None. Perceptual disturbance: None. Thought Content: No paranoia or other delusional thinking noted. Thought Process: Normal. Cognition: Intact Judgment and Insight: Good. Diagnosis: Adjustment disorder with mixed emotional state- resolved. Plan and Recommendations: The patient does not meet criteria for admission to psychiatric unit. She can be discharged from psychiatric point of view. Continue current psychotropic medications. The patient to be given appointment with [facility] within 7 days of discharge
--- NOTE | 2024-06-04 17:01 | P.DS ---
Providers Date of admission: 06/04/24 13:19 Expected date of discharge: 06/04/24 Attending physician: Jaydon Soria MD Consults: 06/03/24 19:59 Consult Physician Routine Consulting Provider: Jose Mcelroy Consult Reason/Comments: known to doc Do you want consulting provider notified?: Yes Primary care physician: Stated None Hospital Course: Discharge Diagnosis: COVID-19 infection Graves' disease. Continue methimazole 10 mg every 48 hours. Suicidal/homicidal ideations Anxiety and depression Hospital course: Patient is a 38-year-old female with a past medical history of Graves' disease on methimazole. She was admitted inpatient and inpatient mental health unit secondary to reports of suicidal and homicidal ideations however patient subsequently tested positive for COVID infection and was transferred to medical unit for medical management and placed on droplet plus contact precautions. Psychiatry following for management of suicidal/homicidal ideations. Patient is medically stable for discharge and denies having any suicidal or homicidal ideations. She was evaluated by psychiatry clearing patient from their perspective for discharge. No medication changes made during this admission. Patient medically stable for discharge at this time. Physical exam: Vital signs reviewed and stable. General: Nontoxic, no distress and appears stated age. Derm: Skin warm and dry, normal coloration for ethnicity. Head: Atraumatic, normocephalic and symmetric. Eyes: EOM's intact, no lid lag, and anicteric sclera Mouth: no lip lesions, mucus membranes moist Cardiovascular: regular rate and rhythm with normal S1S2, no murmur, positive posterior tibial pulses bilaterally, and cap refill < 2 seconds. Lungs: Respirations even, regular, and unlabored on room air. Lungs CTA bilaterally, no rhonchi, no rales, no wheezing, and no accessory muscle usage. Abdominal: soft, nontender to palpation, no guarding, no appreciable organomegaly Ext: ROM intact. No gross muscle atrophy, no edema, no contractures Neuro: Speech clear, face symmetrical and CN II-XII grossly intact with no noted focal neuro deficits Psych: Alert and oriented to person, place, time, and situation. Appropriate and pleasant affect. A total of 31 minutes of time were spent preparing this complex discharge summary. Pt was discharged on 06/04/24 at 4:53 PM. Patient was seen independently by Nurse Practitioner. This document was prepared using [employer] dictation software. Please allow for errors in live source operator while rare they do occur. Chapo Howell NP rendered care for this patient independently, reviewed the findings and plan as documented in the note above. I did not physically speak with or examine the patient on this date. Patient Condition at Discharge: Stable Plan - Discharge Summary Discharge Rx Participant: Yes New Discharge Prescriptions: New PARoxetine [Paxil] 10 mg PO HS 30 Days #30 tab Continue ALPRAZolam [Xanax] 0.25 mg PO BID Dextroamphetamine/Amphetamine [Adderall] 20 mg PO BID methIMAzole 10 mg PO Q48H Discharge Medication List ALPRAZolam [Xanax] 0.25 mg PO BID 02/01/20 [History] Dextroamphetamine/Amphetamine [Adderall] 20 mg PO BID 05/28/24 [History] methIMAzole 10 mg PO Q48H 05/28/24 [History] PARoxetine [Paxil] 10 mg PO HS 30 Days #30 tab 06/04/24 [Rx] Follow up Appointment(s)/Referral(s): [facility] [Outside] - 06/10/24 11:00 am (Intake approx 2 hours ) Fredy Pichardo MD [REFERRING] - 3 Days (PLEASE CALL AND SCHEDULE PT A FOLLOW UP APPOINTMENT WITH RESIDENT CLINIC PRIOR TO DISCHARGE. ) Patient Instructions/Handouts: Depression (DC), COVID-19 (Coronavirus Disease 2019) (DC) Discharge/Stand Alone Forms: Who Do I Call?, Community Resources, Outpatient Counseling, Outpatient Therapy List Discharge Disposition: HOME SELF-CARE
== END 2024-06-04 18:16 | disposition home or self-care (01) ==
LOC: UNDOADMOB 18:16 → INTOOBSV 18:16 → 4SSUR 18:16
PROVIDERS: ADMIT Student in an Organized Health Care Education/Training Program; ATTEND Student in an Organized Health Care Education/Training Program
DX: U07.1 COVID-19 (principal); F43.23 Adjustment disorder with mixed anxiety and depressed mood; E05.00 Thyrotoxicosis with diffuse goiter without thyrotoxic crisis or storm; R45.850 Homicidal ideations; R45.851 Suicidal ideations; Z79.899 Other long term (current) drug therapy; D75.89 Other specified diseases of blood and blood-forming organs; Z91.048 Other nonmedicinal substance allergy status
CPT/HCPCS: 80053; 85025; 96374

== ENCOUNTER → 2024-12-03 | Outpatient (CLI) | payer OTHER ==
--- NOTE | 2024-12-03 15:09 | US ---
EXAMINATION TYPE: US thyroid st tissue head/neck DATE OF EXAM: 12/03/2024 COMPARISON: No prior ultrasounds available at this time. CLINICAL INDICATION: Female, 39 years old with history of R94.6 ABNORMAL RESULTS OF THYROID FUNCTION STUDIES; Pt states h/o Grave's Disease, on thyroid meds TECHNIQUE: Grayscale and color Doppler imaging of the thyroid gland. FINDINGS: GLAND SIZE: Right Lobe: 5.2 x 1.5 x 1.4 cm Overall Parenchyma: homogeneous Left Lobe: 4.5 x 1.0 x 1.3 cm Overall Parenchyma: homogeneous Isthmus Thickness: 0.2 cm NODULES RIGHT: # of nodules measured on right: 1 1. 0.6 X 0.5 x 0.4 cm, lower, calcified nodule, which is wider than tall, with smooth margins. Prior size: No prior LEFT: # of nodules measured on left: 0 ISTHMUS: # of nodules measured in the isthmus: 0 Bilateral neck scanned, prominent lymph node right lateral neck= 1.6 x 0.5 x 0.5 cm with 0.4 cm corti orion thickness. Demonstrate central fatty hilum. Small sub-centimeter nodule right lobe. IMPRESSION: 1. Right thyroid lobe calcified subcentimeter nodule. 2. Mildly prominent benign-appearing right lateral neck lymph node. [facility], , 12/03/2024 3:07 PM
== END | disposition home or self-care (01) ==
LOC: RADUSWWP 14:22
PROVIDERS: ATTEND Family Medicine
DX: E04.2 Nontoxic multinodular goiter (principal); R94.6 Abnormal results of thyroid function studies
CPT/HCPCS: 76536